=== PATIENT | female | born 1945 | race Caucasian/White ===

== ENCOUNTER → 2017-12-20 14:00 | Outpatient (CLI) | payer OTHER, SELFPAY | PROVIDERS: Family Provider Family Medicine; PCP Family Medicine | DX: Z23 Encounter for immunization (principal) | CPT/HCPCS: 90471; 90662 ==

== ENCOUNTER → 2018-03-13 09:04 | Outpatient (CLI) | payer OTHER, SELFPAY ==
[2018-03-13 09:39] LABS: Hematocrit 39.4 % (36-46); Hemoglobin 13.6 g/dL (12.0-16.0); Mean Corpuscular HGB Conc 34.6 % (30-36); Mean Corpuscular Hemoglobin 34.7 PG (26-34); Mean Corpuscular Volume 100.4 fL (80-100); Platelet Count 202 X10^3/uL (150-400); Red Blood Cell Count 3.93 X10^6/uL (4.0-5.2); Red Cell Distribution Width 13.6 % (11.6-14.8); White Blood Cell Count 5.6 X10^3/uL (4.5-11.0)
[2018-03-13 09:54] LABS: Alanine Aminotransferase 42 IU/L (9-52); Albumin 4.4 g/dL (3.5-5.0); Albumin Globulin Ratio 1.3 (1.0-2.8); Alkaline Phosphatase 125 U/L (38-126); Aspartate Aminotransferase 42 IU/L (14-36); BUN Creatinine Ratio 17.1 (6-22); Bilirubin Total 0.6 mg/dL (0.2-1.3); Blood Urea Nitrogen 12 mg/dL (7-17); Calcium 9.2 mg/dL (8.4-10.2); Carbon Dioxide 26 mmol/L (22-32); Chloride 101 mmol/L (98-107); Cholesterol 172 mg/dL (140-199); Estimated Glomerular Filt Rate > 60.0 mL/min (>60); Globulin 3.3 g/dL (1.7-4.1); Glucose 91 mg/dL (80-110); HDL Cholesterol 59 mg/dL (40-60); HEMOLYSIS < 15 (0-50); LDL Cholesterol Calculated 99 mg/dL (<100); Potassium 3.8 mmol/L (3.4-5.1); Sodium 138 mmol/L (137-145); Total Protein 7.7 g/dL (6.3-8.2); Triglycerides 68 mg/dL (35-150)
[2018-03-13 11:08] LABS: TSH w/ Reflex to FT4 1.19 uIU/mL (0.47-4.68)
== END ==
PROVIDERS: PCP Family Medicine; Visit Provider Family Medicine
DX: E78.5 Hyperlipidemia, unspecified (principal); I10 Essential (primary) hypertension
CPT/HCPCS: 36415; 80053; 80061; 84443; 85027

== ENCOUNTER → 2018-08-08 14:28 | Outpatient (CLI) | payer OTHER, SELFPAY ==
--- NOTE | 2018-08-08 14:30 | DI.RAD.S_ITS ---
PROCEDURE: XR HIP W PEL IF DONE RT 2V INDICATIONS: Pain in lower back/top of pelvis right side TECHNIQUE: AP pelvis with lateral view(s) of the right hip(s). COMPARISON: None. FINDINGS: Bones: No fractures or dislocations. Pelvic ring appears intact. No suspicious bony lesions. Soft tissues: The visualized bowel gas pattern is normal. No suspicious soft tissue calcifications. IMPRESSION: No visualized acute fracture or dislocation. However, if clinical concern and/or pain persist, short interval imaging followup in 7-10 days is recommended, as occult injury cannot be definitively excluded. Dictated by: Courtney Parr M.D. on 08/08/2018 at 16:26 Approved by: Courtney Parr M.D. on 08/08/2018 at 16:27
== END ==
PROVIDERS: PCP Family Medicine; Visit Provider Nurse Practitioner
DX: M54.5 Low back pain (principal); R10.2 Pelvic and perineal pain
CPT/HCPCS: 73502

== ENCOUNTER → 2019-01-16 13:41 | Outpatient (CLI) | payer OTHER, SELFPAY | PROVIDERS: PCP Family Medicine | DX: Z23 Encounter for immunization (principal) | CPT/HCPCS: 90471; 90662 ==

== ENCOUNTER → 2019-04-09 09:15 | Outpatient (CLI) | payer OTHER, SELFPAY ==
--- NOTE | 2019-04-09 09:16 | DI.MRI.S_ITS ---
PROCEDURE: MR HEAD/BRAIN WO/W CON INDICATIONS: LEFT ARM AND LEFT LEG WEAKNESS TECHNIQUE: Noncontrast axial T1 spin echo, axial T2 fast spin echo, sagittal and axial FLAIR, coronal T2 fast spin echo, axial gradient echo, axial diffusion and ADC through the brain. After the administration of contrast, axial and coronal T1 spin echo with fat saturation through the brain. COMPARISON: None. FINDINGS: Image quality: Excellent. CSF spaces: Basal cisterns are patent. No extra-axial fluid collections. Ventricles are normal in size and shape. Brain: No midline shift. No intracranial bleeds or masses. No abnormal intracranial enhancement. There is cerebral volume loss for age. There is periventricular white matter chronic small vessel ischemic change. The brainstem appears normal. Diffusion-weighted images demonstrate no acute ischemic insults. No chronic ischemic insults. Normal intravascular flow voids are present. Skull and face: Calvarial marrow is normal in signal. Orbits appear normal. Sinuses: Sinuses and mastoids appear clear. IMPRESSION: 1. No acute intracranial process. 2. Moderate atrophy and chronic microvascular ischemic changes. Dictated by: Courtney Parr M.D. on 04/09/2019 at 11:03 Approved by: Courtney Parr M.D. on 04/09/2019 at 11:08
== END ==
PROVIDERS: PCP Family Medicine; Visit Provider Family Medicine
DX: R29.898 Other symptoms and signs involving the musculoskeletal system (principal)
CPT/HCPCS: 70553

== ENCOUNTER → 2019-04-23 14:58 | Outpatient (CLI) | payer OTHER, SELFPAY ==
--- NOTE | 2019-04-23 14:59 | DI.RAD.S_ITS ---
PROCEDURE: XR CERVICAL SPINE 2V OR 3V INDICATIONS: pain TECHNIQUE: 3 view(s) of the cervical spine were acquired. COMPARISON: None. FINDINGS: Bones: No fractures or dislocations to the T1 level. Note is made of moderately severe degenerative disc disease at C5-6 and C6-7. Facet osteoarthritis at these levels result in likelihood of both spinal and foraminal stenosis. The lateral masses of C1 appear intact on the odontoid view. No suspicious bony lesions. Soft tissues: No prevertebral soft tissue swelling. IMPRESSION: Moderately severe degenerative disc disease C5-6 and C6-7 with likelihood of symmetric significant spinal and foraminal stenosis as a result. No trauma found. Dictated by: Gino Rodríguez M.D. on 04/23/2019 at 15:49 Approved by: Gino Rodríguez M.D. on 04/23/2019 at 16:04
== END ==
PROVIDERS: PCP Family Medicine; Visit Provider Family Medicine
DX: M25.512 Pain in left shoulder (principal); M50.322 Other cervical disc degeneration at C5-C6 level
CPT/HCPCS: 72040

== ENCOUNTER → 2019-06-18 16:11 | Outpatient (CLI) | payer OTHER, SELFPAY ==
--- NOTE | 2019-06-18 16:12 | DI.MRI.S_ITS ---
PROCEDURE: MR CERVICAL SPINE WO CON INDICATIONS: Left sided cervical radiculopathy TECHNIQUE: Noncontrast sagittal T1 spin echo and T2 fast spin echo, sagittal STIR, foraminal oblique sagittal T2 fast spin echo, and axial gradient echo or T2 fast spin echo through the cervical spine. COMPARISON: None. FINDINGS: Image quality: Excellent. Alignment and Curvature: Straightening of the normal lordotic curvature. Grade 1 anterolisthesis of C3 on C4 and trace anterolisthesis of C4 on C5. Grade 1 retrolisthesis of C6 on C7 Bone Marrow: No fracture Multilevel degenerative endplate sclerosis and spurring. Diffuse facet arthropathy. Spinal Cord: Cord T2 hyperintensity present at the C5 level although technically age-indeterminate, and nonspecific No cerebellar tonsillar herniation. Paraspinous Soft Tissues: No paravertebral masses. Prevertebral soft tissues are normal in thickness. C2-C3: No canal stenosis. Mild bilateral foraminal narrowing. C3-C4: Minimal canal narrowing. Severe right and moderate left foraminal stenoses with nerve root compression. C4-C5: Moderate canal stenosis. Severe bilateral foraminal stenoses with nerve root compression. C5-C6: Mild to moderate canal stenosis. Severe right foraminal narrowing without nerve root compression. Moderate left foraminal stenosis with nerve root compression C6-C7: Mild canal narrowing. Moderate bilateral foraminal stenoses although right slightly greater than left. There is bilateral nerve root compression. C7-T1: No canal narrowing. No foraminal stenosis.. IMPRESSION: Numerous bilateral foraminal stenoses, most pronounced at C3-C4, C4-C5, C5-C6. Multilevel spondylolisthesis as above. Moderate canal stenoses at C4-C5 and C5-C6. Cord signal change at the C5 level although technically age indeterminate. This could be chronic degenerative myelomalacia although nonspecific Dictated by: Ricco Ferrari M.D. on 06/18/2019 at 17:58 Approved by: Ricco Ferrari M.D. on 06/18/2019 at 18:05
== END ==
PROVIDERS: PCP Family Medicine; Referring Provider Registered Nurse; Visit Provider Registered Nurse
DX: M48.02 Spinal stenosis, cervical region (principal); M43.12 Spondylolisthesis, cervical region; M47.22 Other spondylosis with radiculopathy, cervical region
CPT/HCPCS: 72141

== ENCOUNTER → 2019-06-21 08:22 | Outpatient (CLI) | payer OTHER, SELFPAY ==
[2019-06-21 09:23] LABS: Add Manual Diff / Slide Review NO; Basophils Absolute Auto 0 /uL (0-100); Basophils Percent Auto 0.9 % (0-2); Eosinophils Absolute Auto 100 /uL (0-450); Eosinophils Percent Auto 2.2 % (2-4); Hematocrit 42.2 % (36-46); Hemoglobin 14.6 g/dL (12.0-16.0); Lymphocytes Absolute Auto 1000 /uL (1100-4500); Lymphocytes Percent Auto 20.2 % (25-40); Mean Corpuscular HGB Conc 34.5 % (30-36); Mean Corpuscular Hemoglobin 35.1 PG (26-34); Mean Corpuscular Volume 101.6 fL (80-100); Monocytes Absolute Auto 400 /uL (0-900); Monocytes Percent Auto 7.9 % (3-14); Neutrophils Absolute Auto 3500 /uL (1500-7000); Neutrophils Percent Auto 68.8 % (50-75); Platelet Count 211 X10^3/uL (150-400); Red Blood Cell Count 4.15 X10^6/uL (4.0-5.2); Red Cell Distribution Width 14.1 % (11.6-14.8); White Blood Cell Count 5.1 X10^3/uL (4.5-11.0)
[2019-06-21 10:04] LABS: Alanine Aminotransferase 26 IU/L (<35); Albumin 4.3 g/dL (3.5-5.0); Albumin Globulin Ratio 1.3 (1.0-2.8); Alkaline Phosphatase 85 U/L (38-126); Aspartate Aminotransferase 36 IU/L (14-36); BUN Creatinine Ratio 19.4 (6-22); Bilirubin Total 0.6 mg/dL (0.2-1.3); Blood Urea Nitrogen 13 mg/dL (7-17); Calcium 9.7 mg/dL (8.4-10.2); Carbon Dioxide 28 mmol/L (22-32); Chloride 102 mmol/L (98-107); Cholesterol 229 mg/dL (140-199); Estimated Glomerular Filt Rate > 60.0 mL/min (>60); Globulin 3.4 g/dL (1.7-4.1); Glucose 99 mg/dL (80-110); HDL Cholesterol 55 mg/dL (40-60); HEMOLYSIS < 15 (0-50); LDL Cholesterol Calculated 160 mg/dL (<100); Potassium 3.8 mmol/L (3.4-5.1); Sodium 136 mmol/L (137-145); Total Protein 7.7 g/dL (6.3-8.2); Triglycerides 70 mg/dL (35-150)
[2019-06-21 11:05] LABS: TSH w/ Reflex to FT4 0.88 uIU/mL (0.47-4.68)
== END ==
PROVIDERS: PCP Family Medicine; Referring Provider Family Medicine; Visit Provider Family Medicine
DX: E78.5 Hyperlipidemia, unspecified (principal); I10 Essential (primary) hypertension
CPT/HCPCS: 36415; 80053; 80061; 84443; 85025

== ENCOUNTER → 2020-03-25 11:39 | Outpatient (CLI) | payer MEDICARE, OTHER, SELFPAY ==
--- NOTE | 2020-03-25 11:42 | DI.RAD.S_ITS ---
PROCEDURE: XR FOOT LT MIN 3V INDICATIONS: INFECTED ABRASION OF FIFTH TOE ON LEFT FOOT TECHNIQUE: 2 views of the foot were acquired. COMPARISON: None. FINDINGS: Bones: There is a moderate hallux valgus deformity. Mild degenerative changes are seen in the interphalangeal joints. Soft tissues: No tibiotalar joint effusion. Achilles tendon appears normal. IMPRESSION: 1. No acute abnormality of the left foot. 2. Hallux valgus deformity of the left great toe. Dictated by: Frank Hart M.D. on 03/25/2020 at 12:35 Approved by: Frank Hart M.D. on 03/25/2020 at 12:37
== END ==
PROVIDERS: PCP Family Medicine; Referring Provider Family Medicine; Visit Provider Family Medicine
DX: S90.415A Abrasion, left lesser toe(s), initial encounter (principal); L08.9 Local infection of the skin and subcutaneous tissue, unspecified; M20.12 Hallux valgus (acquired), left foot; X58.XXXA Exposure to other specified factors, initial encounter
CPT/HCPCS: 73630

== ENCOUNTER → 2020-04-07 13:10 | Outpatient (CLI) | payer MEDICARE, OTHER, SELFPAY | PROVIDERS: Family Provider Family Medicine; PCP Family Medicine; Referring Provider Family Medicine; Visit Provider Family Medicine | DX: S91.105A Unspecified open wound of left lesser toe(s) without damage to nail, initial encounter (principal); R23.0 Cyanosis; I73.00 Raynaud's syndrome without gangrene; L08.9 Local infection of the skin and subcutaneous tissue, unspecified | CPT/HCPCS: 11042; 87070; 87075; 87077; 87147; 87186; 87205; 99203; 99213 ==

== ENCOUNTER → 2020-04-10 14:25 | Outpatient (CLI) | payer MEDICARE, OTHER, SELFPAY ==
[2020-04-10 14:53] LABS: Add Manual Diff / Slide Review NO; Basophils Absolute Auto 100 /uL (0-100); Basophils Percent Auto 0.6 % (0-2); Eosinophils Absolute Auto 100 /uL (0-450); Eosinophils Percent Auto 0.9 % (2-4); Hemoglobin 13.4 g/dL (12.0-16.0); Lymphocytes Absolute Auto 1400 /uL (1100-4500); Lymphocytes Percent Auto 13.8 % (25-40); Mean Corpuscular HGB Conc 33.6 % (30-36); Mean Corpuscular Hemoglobin 34.1 PG (26-34); Mean Corpuscular Volume 101.3 fL (80-100); Monocytes Absolute Auto 600 /uL (0-900); Monocytes Percent Auto 5.6 % (3-14); Neutrophils Absolute Auto 8000 /uL (1500-7000); Neutrophils Percent Auto 79.1 % (50-75); Platelet Count 236 X10^3/uL (150-400); Red Blood Cell Count 3.94 X10^6/uL (4.0-5.2); Red Cell Distribution Width 13.7 % (11.6-14.8); White Blood Cell Count 10.1 X10^3/uL (4.5-11.0)
[2020-04-10 15:13] LABS: Erythrocyte Sedimentation Rate 12 MM/HR (0-20)
[2020-04-10 16:05] LABS: Alanine Aminotransferase 43 IU/L (<35); Albumin 4.5 g/dL (3.5-5.0); Albumin Globulin Ratio 1.3 (1.0-2.8); Alkaline Phosphatase 231 U/L (38-126); Aspartate Aminotransferase 44 IU/L (14-36); BUN Creatinine Ratio 35.1 (6-22); Bilirubin Total 0.5 mg/dL (0.2-1.3); Blood Urea Nitrogen 27 mg/dL (7-17); C-Reactive Protein Quant < 0.5 mg/dL (<1.0); Carbon Dioxide 25 mmol/L (22-32); Chloride 101 mmol/L (98-107); Estimated Glomerular Filt Rate > 60.0 mL/min (>60); Globulin 3.5 g/dL (1.7-4.1); Glucose 110 mg/dL (80-110); HEMOLYSIS < 15 (0-50); Potassium 3.8 mmol/L (3.4-5.1); Sodium 134 mmol/L (137-145)
[2020-04-10 16:08] LABS: Rheumatoid Factor < 8.6 IU/mL (<12.0)
[2020-04-12 13:50] LABS: ANA Screen, IFA Negative (.)
== END ==
PROVIDERS: Family Provider Family Medicine; PCP Family Medicine; Referring Provider Family Medicine; Visit Provider Family Medicine
DX: S91.105A Unspecified open wound of left lesser toe(s) without damage to nail, initial encounter (principal); R23.0 Cyanosis; L08.9 Local infection of the skin and subcutaneous tissue, unspecified; I73.89 Other specified peripheral vascular diseases
CPT/HCPCS: 36415; 80053; 85025; 85651; 86038; 86140; 86430

== ENCOUNTER → 2020-04-14 14:54 | Outpatient (CLI) | payer MEDICARE, OTHER, SELFPAY | PROVIDERS: Family Provider Family Medicine; PCP Family Medicine; Referring Provider Family Medicine; Visit Provider Family Medicine | DX: S91.105A Unspecified open wound of left lesser toe(s) without damage to nail, initial encounter (principal); R23.0 Cyanosis | CPT/HCPCS: 97597; 99213 ==

== ENCOUNTER → 2020-05-06 12:03 | Outpatient (CLI) | payer MEDICARE, OTHER, SELFPAY ==
[2020-05-06] MEDS: COVID-19 VACC #1, MRNA(MOD) 100 MCG/0.5 ML VIAL IM (12:09)
== END ==
PROVIDERS: Family Provider Family Medicine; PCP Family Medicine; Visit Provider Internal Medicine
DX: Z23 Encounter for immunization (principal)
CPT/HCPCS: 0011A; 91301

== ENCOUNTER → 2020-06-03 15:00 | Outpatient (CLI) | payer MEDICARE, OTHER, SELFPAY ==
[2020-06-03] MEDS: COVID-19 VACC #2, MRNA(MOD) 100 MCG/0.5 ML VIAL IM (15:11)
== END ==
PROVIDERS: Family Provider Family Medicine; PCP Family Medicine; Visit Provider Internal Medicine
DX: Z23 Encounter for immunization (principal)
CPT/HCPCS: 0012A; 91301

== ENCOUNTER → 2021-03-11 14:25 | Outpatient (CLI) | payer MEDICARE, OTHER, SELFPAY | PROVIDERS: Family Provider Family Medicine; PCP Family Medicine; Referring Provider Nurse Practitioner Family; Visit Provider Family Medicine | DX: S91.105A Unspecified open wound of left lesser toe(s) without damage to nail, initial encounter (principal); I73.89 Other specified peripheral vascular diseases | CPT/HCPCS: 11042; 93922; 99213; 99214 ==

== ENCOUNTER → 2021-03-18 15:29 | Outpatient (CLI) | payer MEDICARE, OTHER, SELFPAY | PROVIDERS: Family Provider Family Medicine; PCP Family Medicine; Referring Provider Family Medicine; Visit Provider Family Medicine | DX: S91.105A Unspecified open wound of left lesser toe(s) without damage to nail, initial encounter (principal); R23.0 Cyanosis; I73.89 Other specified peripheral vascular diseases | CPT/HCPCS: 97597 ==

== ENCOUNTER → 2021-04-01 14:48 | Outpatient (CLI) | payer MEDICARE, OTHER, SELFPAY | PROVIDERS: Family Provider Family Medicine; PCP Family Medicine; Referring Provider Family Medicine; Visit Provider Family Medicine | DX: R23.0 Cyanosis (principal); Z72.0 Tobacco use; Z87.2 Personal history of diseases of the skin and subcutaneous tissue | CPT/HCPCS: 99212; 99213 ==

== ENCOUNTER → 2021-06-08 08:37 | Outpatient (CLI) | payer MEDICARE, OTHER, SELFPAY ==
--- NOTE | 2021-06-08 08:40 | DI.RAD.S_ITS ---
PROCEDURE: XR SHOULDER LT MIN 2V INDICATIONS: LEFT SHOULDER PAIN TECHNIQUE: 3 views of the shoulder were acquired. COMPARISON: None. FINDINGS: Bones: No fractures or dislocations. No suspicious bony lesions. Visualized ribs appear intact. Mild acromioclavicular joint and glenohumeral joint osteoarthritis. Soft tissues: No suspicious soft tissue calcifications. IMPRESSION: Mild glenohumeral and acromioclavicular osteoarthritis. Dictated by: Sheri Baer MD, PhD on 06/08/2021 at 15:08 Approved by: Sheri Baer MD, PhD on 06/08/2021 at 15:09
== END ==
PROVIDERS: Family Provider Family Medicine; PCP Family Medicine; Referring Provider Physical Medicine & Rehabilitation; Visit Provider Physical Medicine & Rehabilitation
DX: M19.012 Primary osteoarthritis, left shoulder (principal); S46.912A Strain of unspecified muscle, fascia and tendon at shoulder and upper arm level, left arm, initial encounter; M48.02 Spinal stenosis, cervical region; M75.42 Impingement syndrome of left shoulder; M25.512 Pain in left shoulder; F17.200 Nicotine dependence, unspecified, uncomplicated; X58.XXXA Exposure to other specified factors, initial encounter
CPT/HCPCS: 73030; 99214

== ENCOUNTER → 2021-07-18 08:52 | Outpatient (CLI) | payer MEDICARE, OTHER, SELFPAY ==
[2021-07-18 10:03] LABS: Add Manual Diff / Slide Review NO; Basophils Absolute Auto 0 /uL (0-100); Basophils Percent Auto 0.6 % (0-2); Eosinophils Absolute Auto 400 /uL (0-450); Eosinophils Percent Auto 5.1 % (2-4); Hematocrit 40.7 % (36-46); Lymphocytes Absolute Auto 1700 /uL (1100-4500); Lymphocytes Percent Auto 23.5 % (25-40); Mean Corpuscular HGB Conc 34.3 % (30-36); Mean Corpuscular Volume 99.2 fL (80-100); Monocytes Absolute Auto 600 /uL (0-900); Monocytes Percent Auto 8.7 % (3-14); Neutrophils Absolute Auto 4500 /uL (1500-7000); Neutrophils Percent Auto 62.1 % (50-75); Platelet Count 205 X10^3/uL (150-400); Red Blood Cell Count 4.11 X10^6/uL (4.0-5.2); Red Cell Distribution Width 14.1 % (11.6-14.8); White Blood Cell Count 7.2 X10^3/uL (4.5-11.0)
[2021-07-18 10:54] LABS: Alanine Aminotransferase 51 IU/L (<35); Albumin 4.6 g/dL (3.5-5.0); Albumin Globulin Ratio 1.2 (1.0-2.8); Alkaline Phosphatase 224 U/L (38-126); Aspartate Aminotransferase 60 IU/L (14-36); BUN Creatinine Ratio 27.9 (6-22); Bilirubin Total 0.6 mg/dL (0.2-1.3); Blood Urea Nitrogen 19 mg/dL (7-17); Calcium 9.7 mg/dL (8.4-10.2); Carbon Dioxide 25 mmol/L (22-32); Chloride 105 mmol/L (98-107); Cholesterol 235 mg/dL (140-199); Estimated Glomerular Filt Rate > 60.0 mL/min (>60); Globulin 3.8 g/dL (1.7-4.1); Glucose 96 mg/dL (80-110); HDL Cholesterol 56 mg/dL (40-60); HEMOLYSIS < 15 (0-50); LDL Cholesterol Calculated 151 mg/dL (<100); Potassium 3.9 mmol/L (3.4-5.1); Sodium 140 mmol/L (137-145); Total Protein 8.4 g/dL (6.3-8.2); Triglycerides 138 mg/dL (35-150)
[2021-07-18 11:43] LABS: Vitamin B12 851 pg/mL (239-931)
== END ==
PROVIDERS: Family Provider Family Medicine; PCP Family Medicine; Referring Provider Physician Assistant; Visit Provider Physician Assistant
DX: E78.5 Hyperlipidemia, unspecified (principal); F17.200 Nicotine dependence, unspecified, uncomplicated; I10 Essential (primary) hypertension; R26.89 Other abnormalities of gait and mobility
CPT/HCPCS: 36415; 80053; 80061; 82607; 84443; 85025

== ENCOUNTER 2021-08-10 09:26 | Emergency (ER) | payer MEDICARE, OTHER, SELFPAY ==
[2021-08-10] VITALS (27 sets, daily range): BP systolic 146–199; BP diastolic 72–110; PULSE 42–59; RESP 14–30; TEMP 36.4; O2SAT 96–99
--- NOTE | 2021-08-10 09:48 | DI.RAD.S_ITS ---
PROCEDURE: XR CHEST 1V INDICATIONS: weakness TECHNIQUE: One view of the chest was acquired. COMPARISON: None. FINDINGS: Surgical changes and devices: None. Lungs and pleura: Left apical nodular density measuring 43 mm. No evidence of pneumonia or edema. No pleural effusions or pneumothorax. Mediastinum: Mediastinal contours appear normal. Heart size is normal. Bones and chest wall: No suspicious bony lesions. Overlying soft tissues appear unremarkable. IMPRESSION: 1. Left apical density; initial further assessment with contrast enhanced chest CT is recommended. 2. No acute process. Dictated by: Marleen Vogel M.D. on 08/10/2021 at 10:12 Approved by: Marleen Vogel M.D. on 08/10/2021 at 10:13
--- NOTE | 2021-08-10 09:59 | DI.CT.S_ITS ---
PROCEDURE: CT LUMBAR SPINE WO CON INDICATIONS: fall pain TECHNIQUE: Noncontrast 3 mm thick sections acquired from the T12 level to the sacrum. Sagittal and coronal reformats were constructed. For radiation dose reduction, the following was used: automated exposure control. COMPARISON: None. FINDINGS: Image quality: Excellent. Bones: There is an inferior endplate fracture causing approximate 30% compression deformity at L2. Fracture lucency is identified within the mid/posterior 3rd of the vertebral body. No visualized paravertebral hematoma. Severe disc space narrowing with reactive endplate changes are present L4-5 and L5-S1. Multilevel disc bulges are present. Minimal spinal stenosis is present at L2-3, L3-4. Soft tissues: No retroperitoneal masses or hematomas. Visualized aorta is normal in caliber. IMPRESSION: Acute/subacute fracture at L2 as above. Dictated by: Courtney Parr M.D. on 08/10/2021 at 9:15 Approved by: Courtney Parr M.D. on 08/10/2021 at 9:48
--- NOTE | 2021-08-10 09:59 | DI.CT.S_ITS ---
PROCEDURE: CT HEAD/BRAIN WO CON INDICATIONS: bilateral lower leg weakness TECHNIQUE: Noncontrast 4.5 mm thick angled axial sections acquired from the foramen magnum to the vertex, with coronal and sagittal reformats. For radiation dose reduction, the following was used: automated exposure control, adjustment of mA and/or kV according to patient size. COMPARISON: [facility], MR, MR HEAD/BRAIN WO/W CON, 04/09/2019, 9:38. FINDINGS: Image quality: Excellent. CSF spaces: Basal cisterns are patent. No extra-axial fluid collections. There is mild hydrocephalus. Brain: No intracranial bleeds . There is a calcified mass within the left cerebellar hemisphere measuring roughly 35 mm diameter, with surrounding ill-defined low density, spanning roughly 52 mm diameter, which causes compression of the 4th ventricle. Peripherally calcified cystic mass within the right parietal lobe measuring roughly 35 mm is present with surrounding low density, consistent with vasogenic edema. Right occipital lobe mass with central necrosis and peripheral calcifications spanning roughly 34 mm is present, with surrounding low density. There is cerebral volume loss for age, with resultant ventricular and sulcal prominence. There are periventricular and deep white matter chronic small vessel ischemic changes. The cerebellar mass appears to cause mass effect upon the cleo. There is intracranial internal carotid artery atherosclerosis. Skull and face: Calvarium and visualized facial bones appear intact, without suspicious lesions. Sinuses: Visualized sinuses and mastoids are clear. IMPRESSION: 1. Cerebral and cerebellar masses as described above, consistent with metastatic disease. 2. The cerebellar mass demonstrates mass effect upon the cleo and 4th ventricle with associated hydrocephalus. Dictated by: Marleen Vogel M.D. on 08/10/2021 at 10:16 Approved by: Marleen Vogel M.D. on 08/10/2021 at 10:19
[2021-08-10 10:07] LABS: Add Manual Diff / Slide Review NO; Basophils Absolute Auto 0 /uL (0-100); Basophils Percent Auto 0.4 % (0-2); Eosinophils Absolute Auto 100 /uL (0-450); Eosinophils Percent Auto 1.7 % (2-4); Hematocrit 38.4 % (36-46); Hemoglobin 13.4 g/dL (12.0-16.0); Lymphocytes Absolute Auto 1000 /uL (1100-4500); Lymphocytes Percent Auto 12.5 % (25-40); Mean Corpuscular HGB Conc 34.9 % (30-36); Mean Corpuscular Hemoglobin 34.3 PG (26-34); Mean Corpuscular Volume 98.4 fL (80-100); Monocytes Absolute Auto 500 /uL (0-900); Neutrophils Absolute Auto 6100 /uL (1500-7000); Neutrophils Percent Auto 79.4 % (50-75); Platelet Count 187 X10^3/uL (150-400); Red Cell Distribution Width 14.1 % (11.6-14.8); White Blood Cell Count 7.7 X10^3/uL (4.5-11.0)
[2021-08-10 10:13] LABS: INR 1.1 (0.9-1.3); Prothrombin Time 12.5 SECONDS (10.1-12.7)
[2021-08-10 10:16] LABS: PTT Partial Thromboplastin Tim 31 SECONDS (26.4-36.2)
[2021-08-10 10:22] LABS: Alanine Aminotransferase 32 IU/L (<35); Albumin 4.1 g/dL (3.5-5.0); Albumin Globulin Ratio 1.2 (1.0-2.8); Alkaline Phosphatase 173 U/L (38-126); Aspartate Aminotransferase 41 IU/L (14-36); BUN Creatinine Ratio 39.6 (6-22); Bilirubin Total 0.7 mg/dL (0.2-1.3); Blood Urea Nitrogen 21 mg/dL (7-17); Carbon Dioxide 22 mmol/L (22-32); Chloride 109 mmol/L (98-107); Creatine Kinase 46 U/L (30-135); Estimated Glomerular Filt Rate > 60 mL/min (>60); Globulin 3.4 g/dL (1.7-4.1); Glucose 104 mg/dL (80-110); HEMOLYSIS 25 (0-50); Lipase 57 U/L (23-300); Potassium 3.5 mmol/L (3.4-5.1); Sodium 138 mmol/L (137-145); Total Protein 7.5 g/dL (6.3-8.2)
[2021-08-10 10:32] LABS: Troponin I < 0.012 ng/mL (0.01-0.034)
--- NOTE | 2021-08-10 10:51 | ED.WEAKNESS ---
HPI - Weakness General Chief complaint: Weakness Stated complaint: Lower back pain Time Seen by Provider: 08/10/21 09:47 Mode of arrival: EMS History of Present Illness HPI Narrative: Patient is a 75-year-old female who has history of myelomalacia of the cervical spine, hypertension, hyperlipidemia presenting today with bilateral lower extremity weakness. This has been ongoing for about 1-2 weeks. She feels weakness in her lower legs. She saw her primary care provider on 08/05/2021 for something similar. She feels like her legs give out.. Yesterday she fell straight on her back and now having back pain. No changes in bowel or bladder habits. She is also noted to be slightly bradycardic with heart rate in the 40s but a sinus rhythm not on any AV keo blockers. She denies any chest pain shortness of breath chest pain or palpitations. According to daughter patient actually felt well until about 2 weeks ago. 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 Daughter reports she has urinary incontinence as well. She is also having increasing falls. Related Data Home Medications Medication Instructions Recorded Confirmed MULTIVITAMIN 1 cap PO Q DAY #0 09/20/11 08/05/21 aspirin 81 mg tablet,delayed 81 mg PO DAILY 02/14/18 08/05/21 release (Adult Low Dose Aspirin) acetaminophen 500 mg tablet 500 mg PO Q6H PRN 07/20/21 08/05/21 (Tylenol Extra Strength) cholecalciferol (vitamin D3) 50 50 mcg PO DAILY 07/20/21 08/05/21 mcg (2,000 unit) capsule tumeric 100 mg-angelina 150 mg-olive cap PO 07/20/21 08/05/21 50 mg-oreg 150 mg-caprylate capsule Previous Rx's Medication Instructions Recorded simvastatin 20 mg tablet 20 mg PO HS #90 tab 11/03/20 triamcinolone acetonide 0.1 % 1 applic TOPICAL BID #15 gram 04/15/21 topical cream Allergies Allergy/AdvReac Type Severity Reaction Status Date / Time No Known Drug Allergies Allergy Verified 08/05/21 14:47 Review of Systems Review of Systems Narrative: GENERAL: Denies chills, fatigue, malaise, fever, sweats, travel HEENT: Denies sinus pain, ear pain, sore throat, difficulty swallowing, neck pain RESPIRATORY: Denies dyspnea, cough, wheezing, hemoptysis, sputum. CARDIOVASCULAR: Denies chest pain, palpitations, orthopnea, edema GASTROINTESTINAL: Denies nausea, vomiting, abdominal pain, diarrhea, constipation, melena. : Denies dysuria, frequency, incontinence, hematuria, urinary retention, flank pain. MUSCULOSKELETAL: see HPI SKIN: No rash, no erythema, no pruritus NEUROLOGIC: See HPI PSYCHIATRIC: No concerning psychosocial issues. 12 point review of systems is negative except for those stated above and HPI Patient History Medical History Arthritis of carpometacarpal (CMC) joint of left thumb Cervical stenosis of spinal canal Facet arthropathy, cervical Foraminal stenosis of cervical region Impingement syndrome of left shoulder Myelomalacia of cervical cord Surgical History History of tonsillectomy Status post tubal ligation Social History marital status: Smoking Status: Current every day smoker alcohol intake: current substance use type: does not use Smoking Status: Current every day smoker Exam Initial Vital Signs Initial Vital Signs: Vital Signs Temperature 97.6 F 08/10/21 09:35 Pulse Rate 44 L 08/10/21 09:35 Respiratory Rate 16 08/10/21 09:35 Blood Pressure 183/72 H 08/10/21 09:35 Pulse Oximetry 99 08/10/21 09:35 GENERAL: Alert week 75-year-old female no acute distress HEENT: Head atraumatic,EOMI, pupils reactive, face symmetric, moist mucous membranes CARDIOVASCULAR: Regular rate and rhythm without murmurs, rubs or gallops. RESPIRATORY: Breath sounds equal bilaterally, no wheezes rales or rhonchi. ABDOMEN: Soft, nontender. Normoactive bowel sounds all 4 quadrants. No guarding or rebound. BACK: Tender at L1-L2 area no step-off EXTREMITIES: Normal range of motion, no clubbing or edema. Neurovascularly intact NEUROLOGICAL: Alert and oriented x4. Significant bilateral lower extremity weakness unable to lift left leg is against gravity right leg very brief but quickly falls. 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 Course Orders Ordered: ED Orders 08/10/21 11:30 MR lumbar spine wo/w con Stat 08/10/21 15:58 Urinalysis and Microscopic Stat 08/10/21 16:52 CT chest abd pel w con Stat 08/10/21 17:15 COVID19 -Nasal RAPID/Pre-Proc Stat Discontinued Medications Lorazepam (Lorazepam 2 Mg/Ml Inj) 0.5 mg IV NOW ONE Stop: 08/10/21 12:24 Last Admin: 08/10/21 14:31 Dose: 0.5 mg Documented by: TADEO Lorazepam (Lorazepam 2 Mg/Ml Inj) 0.5 mg IV NOW ONE Stop: 08/10/21 16:54 Last Admin: 08/10/21 17:01 Dose: 0.5 mg Documented by: TADEO Nicotine (Nicotine 21 Mg Patch) 21 mg TOP NOW ONE Stop: 08/10/21 18:37 Last Admin: 08/10/21 18:44 Dose: 21 mg Documented by: TADEO Ondansetron HCl (Ondansetron 4 Mg/2 Ml Inj) 4 mg IV NOW ONE Stop: 08/10/21 13:49 Last Admin: 08/10/21 13:54 Dose: 4 mg Documented by: TADEO Vital Signs Vital signs: Vital Signs - 8 hr 08/10/21 12:00 08/10/21 12:01 08/10/21 12:30 Pulse Rate 43 L 43 L 44 L Respiratory Rate 14 16 15 Blood Pressure 153/74 H 167/78 H Pulse Oximetry 96 97 96 08/10/21 13:00 08/10/21 13:01 08/10/21 13:30 Pulse Rate 44 L 43 L 44 L Respiratory Rate 15 16 20 Blood Pressure 146/110 H Pulse Oximetry 97 97 97 08/10/21 13:58 08/10/21 14:00 08/10/21 14:30 Pulse Rate 43 L 44 L 53 L Respiratory Rate 17 23 30 H Blood Pressure 163/80 H Pulse Oximetry 97 98 97 08/10/21 15:29 08/10/21 15:30 08/10/21 15:31 Pulse Rate 56 L 59 L 55 L Respiratory Rate 17 18 Blood Pressure 173/84 H Pulse Oximetry 96 97 08/10/21 16:00 08/10/21 16:30 08/10/21 17:10 Pulse Rate 56 L 45 L 45 L Respiratory Rate 19 25 H 30 H Blood Pressure Pulse Oximetry 98 08/10/21 17:30 08/10/21 18:40 Pulse Rate 48 L Respiratory Rate 22 Blood Pressure 199/93 H Pulse Oximetry MDM - Weakness Lab Data Result diagrams: 08/10/21 09:55 08/10/21 09:55 Labs: Lab Results 08/10/21 08/10/21 08/10/21 Range/Units 09:55 09:55 09:55 WBC 7.7 (4.5-11.0) X10^3/uL RBC 3.90 L (4.0-5.2) X10^6/uL Hgb 13.4 (12.0-16.0) g/dL Hct 38.4 (36-46) % MCV 98.4 (80-100) fL MCH 34.3 H (26-34) PG MCHC 34.9 (30-36) % RDW 14.1 (11.6-14.8) % Plt Count 187 (150-400) X10^3/uL Neut % (Auto) 79.4 H (50-75) % Lymph % (Auto) 12.5 L (25-40) % Giles % (Auto) 6.0 (3-14) % Eos % (Auto) 1.7 L (2-4) % Baso % (Auto) 0.4 (0-2) % Neut # (Auto) 6100 (3183-9458) /uL Lymph # (Auto) 1000 L (8333-8553) /uL Giles # (Auto) 500 (0-900) /uL Eos # (Auto) 100 (0-450) /uL Baso # (Auto) 0 (0-100) /uL PT 12.5 (10.1-12.7) SECONDS INR 1.1 (0.9-1.3) APTT 31 (26.4-36.2) SECONDS Sodium 138 (137-145) mmol/L Potassium 3.5 (3.4-5.1) mmol/L Chloride 109 H (98-107) mmol/L Carbon Dioxide 22 (22-32) mmol/L BUN 21 H (7-17) mg/dL Creatinine 0.53 (0.52-1.04) mg/dL Estimated GFR > 60 (>60) mL/min BUN/Creatinine Ratio 39.6 H (6-22) Glucose 104 (80-110) mg/dL Calcium 9.0 (8.4-10.2) mg/dL Magnesium (1.6-2.3) mg/dL Total Bilirubin 0.7 (0.2-1.3) mg/dL AST 41 H (14-36) IU/L ALT 32 (<35) IU/L Alkaline Phosphatase 173 H (38-126) U/L Total Creatine Kinase 46 (30-135) U/L CK-MB (CK-2) TNP CK-MB (CK-2) Rel Index TNP Troponin I < 0.012 (0.01-0.034) ng/mL Total Protein 7.5 (6.3-8.2) g/dL Albumin 4.1 (3.5-5.0) g/dL Globulin 3.4 (1.7-4.1) g/dL Albumin/Globulin Ratio 1.2 (1.0-2.8) Lipase 57 (23-300) U/L TSH (0.47-4.68) uIU/mL Urine Color Urine Appearance Urine pH (4.5-8.0) Ur Specific [place] (1.000-1.035) Urine Protein (Negative) Urine Glucose (UA) (Negative) g/dL Urine Ketones (NEGATIVE) Urine Occult Blood (Negative) Urine Nitrate (Negative) Urine Bilirubin (NEGATIVE) Urine Urobilinogen (0.2) E.U./dL Ur Leukocyte Esterase (NEGATIVE) Urine RBC (0-5/HPF) Urine WBC (0-5/HPF) Calcium Oxalate Crystal Amorphous Sediment Urine Bacteria (None) Urine Mucus (Negative) Ur Culture Indicated? SARS-CoV-2 (PCR) (Negative) 08/10/21 08/10/21 08/10/21 Range/Units 09:55 09:55 15:58 WBC (4.5-11.0) X10^3/uL RBC (4.0-5.2) X10^6/uL Hgb (12.0-16.0) g/dL Hct (36-46) % MCV (80-100) fL MCH (26-34) PG MCHC (30-36) % RDW (11.6-14.8) % Plt Count (150-400) X10^3/uL Neut % (Auto) (50-75) % Lymph % (Auto) (25-40) % Giles % (Auto) (3-14) % Eos % (Auto) (2-4) % Baso % (Auto) (0-2) % Neut # (Auto) (4707-9212) /uL Lymph # (Auto) (3070-6577) /uL Giles # (Auto) (0-900) /uL Eos # (Auto) (0-450) /uL Baso # (Auto) (0-100) /uL PT (10.1-12.7) SECONDS INR (0.9-1.3) APTT (26.4-36.2) SECONDS Sodium (137-145) mmol/L Potassium (3.4-5.1) mmol/L Chloride (98-107) mmol/L Carbon Dioxide (22-32) mmol/L BUN (7-17) mg/dL Creatinine (0.52-1.04) mg/dL Estimated GFR (>60) mL/min BUN/Creatinine Ratio (6-22) Glucose (80-110) mg/dL Calcium (8.4-10.2) mg/dL Magnesium 2.0 (1.6-2.3) mg/dL Total Bilirubin (0.2-1.3) mg/dL AST (14-36) IU/L ALT (<35) IU/L Alkaline Phosphatase (38-126) U/L Total Creatine Kinase (30-135) U/L CK-MB (CK-2) CK-MB (CK-2) Rel Index Troponin I (0.01-0.034) ng/mL Total Protein (6.3-8.2) g/dL Albumin (3.5-5.0) g/dL Globulin (1.7-4.1) g/dL Albumin/Globulin Ratio (1.0-2.8) Lipase (23-300) U/L TSH 1.23 (0.47-4.68) uIU/mL Urine Color Yellow Urine Appearance Clear Urine pH 6.5 (4.5-8.0) Ur Specific [place] 1.020 (1.000-1.035) Urine Protein Trace H (Negative) Urine Glucose (UA) Negative (Negative) g/dL Urine Ketones 1+ H (NEGATIVE) Urine Occult Blood Trace-lysed (Negative) Urine Nitrate Negative (Negative) Urine Bilirubin Negative (NEGATIVE) Urine Urobilinogen 0.2 (0.2) E.U./dL Ur Leukocyte Esterase Negative (NEGATIVE) Urine RBC 0-1/hpf (0-5/HPF) Urine WBC None seen (0-5/HPF) Calcium Oxalate Crystal Occasional H Amorphous Sediment 1+ Urine Bacteria None seen (None) Urine Mucus 1+ H (Negative) Ur Culture Indicated? Cult not indicated SARS-CoV-2 (PCR) (Negative) 08/10/21 Range/Units 17:15 WBC (4.5-11.0) X10^3/uL RBC (4.0-5.2) X10^6/uL Hgb (12.0-16.0) g/dL Hct (36-46) % MCV (80-100) fL MCH (26-34) PG MCHC (30-36) % RDW (11.6-14.8) % Plt Count (150-400) X10^3/uL Neut % (Auto) (50-75) % Lymph % (Auto) (25-40) % Giles % (Auto) (3-14) % Eos % (Auto) (2-4) % Baso % (Auto) (0-2) % Neut # (Auto) (1234-1334) /uL Lymph # (Auto) (6727-8379) /uL Giles # (Auto) (0-900) /uL Eos # (Auto) (0-450) /uL Baso # (Auto) (0-100) /uL PT (10.1-12.7) SECONDS INR (0.9-1.3) APTT (26.4-36.2) SECONDS Sodium (137-145) mmol/L Potassium (3.4-5.1) mmol/L Chloride (98-107) mmol/L Carbon Dioxide (22-32) mmol/L BUN (7-17) mg/dL Creatinine (0.52-1.04) mg/dL Estimated GFR (>60) mL/min BUN/Creatinine Ratio (6-22) Glucose (80-110) mg/dL Calcium (8.4-10.2) mg/dL Magnesium (1.6-2.3) mg/dL Total Bilirubin (0.2-1.3) mg/dL AST (14-36) IU/L ALT (<35) IU/L Alkaline Phosphatase (38-126) U/L Total Creatine Kinase (30-135) U/L CK-MB (CK-2) CK-MB (CK-2) Rel Index Troponin I (0.01-0.034) ng/mL Total Protein (6.3-8.2) g/dL Albumin (3.5-5.0) g/dL Globulin (1.7-4.1) g/dL Albumin/Globulin Ratio (1.0-2.8) Lipase (23-300) U/L TSH (0.47-4.68) uIU/mL Urine Color Urine Appearance Urine pH (4.5-8.0) Ur Specific [place] (1.000-1.035) Urine Protein (Negative) Urine Glucose (UA) (Negative) g/dL Urine Ketones (NEGATIVE) Urine Occult Blood (Negative) Urine Nitrate (Negative) Urine Bilirubin (NEGATIVE) Urine Urobilinogen (0.2) E.U./dL Ur Leukocyte Esterase (NEGATIVE) Urine RBC (0-5/HPF) Urine WBC (0-5/HPF) Calcium Oxalate Crystal Amorphous Sediment Urine Bacteria (None) Urine Mucus (Negative) Ur Culture Indicated? SARS-CoV-2 (PCR) Negative (Negative) Imaging Data CT scan - head: Radiologist Impression: CT Scan Report Signed Patient: Areli Ac MR#: [id number] : 1945 Acct:[id number] Age/Sex: 75 / F Date of Service: 08/10/21 Loc: ED Accession Number: [id number] ?? Procedure: CT head/brain wo con Ordering Provider: Loretta Saini D.O. PROCEDURE:? CT HEAD/BRAIN WO CON ? INDICATIONS:? bilateral lower leg weakness ? TECHNIQUE:? Noncontrast 4.5 mm thick angled axial sections acquired from the foramen magnum to the vertex, with coronal and sagittal reformats.? For radiation dose reduction, the following was used:? automated exposure control, adjustment of mA and/or kV according to patient size.? ? COMPARISON:[facility], , MR HEAD/BRAIN WO/W CON, 04/09/2019, 9:38. ? FINDINGS:? Image quality:? Excellent.? ? CSF spaces:? Basal cisterns are patent.? No extra-axial fluid collections.? There is mild hydrocephalus. ? Brain:? No intracranial bleeds .? There is a calcified mass within the left cerebellar hemisphere measuring roughly 35 mm diameter, with surrounding ill-defined low density, spanning roughly 52 mm diameter, which causes compression of the 4th ventricle.? Peripherally calcified cystic mass within the right parietal lobe measuring roughly 35 mm is present with surrounding low density, consistent with vasogenic edema.? Right occipital lobe mass with central necrosis and peripheral calcifications spanning roughly 34 mm is present, with surrounding low density.? There is cerebral volume loss for age, with resultant ventricular and sulcal prominence.? There are periventricular and deep white matter chronic small vessel ischemic changes.? The cerebellar mass appears to cause mass effect upon the cleo.? There is intracranial internal carotid artery atherosclerosis.? ? Skull and face:? Calvarium and visualized facial bones appear intact, without suspicious lesions.? ? Sinuses:? Visualized sinuses and mastoids are clear.? ? IMPRESSION:? 1. Cerebral and cerebellar masses as described above, consistent with metastatic disease. 2. The cerebellar mass demonstrates mass effect upon the cleo and 4th ventricle with associated hydrocephalus.? ? ? Dictated by: Marleen Vogel M.D. on 08/10/2021 at 10:16 ?? Chest x-ray: Radiologist Impression: ent: Areli Ac MR#: [id number] : 1945 Acct:[id number] Age/Sex: 75 / F Date of Service: 08/10/21 Loc: ED Accession Number: [id number] ?? Procedure: XR chest 1V Ordering Provider: Loretta Saini D.O. PROCEDURE:? XR CHEST 1V ? INDICATIONS:? weakness ? TECHNIQUE:? One view of the chest was acquired.? ? COMPARISON:? None. ? FINDINGS:? ? Surgical changes and devices:? None.? ? Lungs and pleura:? Left apical nodular density measuring 43 mm.? No evidence of pneumonia or edema.? No pleural effusions or pneumothorax.? ? Mediastinum:? Mediastinal contours appear normal.? Heart size is normal.? ? Bones and chest wall:? No suspicious bony lesions.? Overlying soft tissues appear unremarkable.? ? IMPRESSION:? 1. Left apical density; initial further assessment with contrast enhanced chest CT is recommended.? 2. No acute process.? ? Dictated by: Marleen Vogel M.D. on 08/10/2021 at 10:12 ? ? CT Lumbar: Radiologist Impression: nt: Areli Ac MR#: [id number] : 1945 Acct:[id number] Age/Sex: 75 / F Date of Service: 08/10/21 Loc: ED Accession Number: [id number] ?? Procedure: CT lumbar spine wo con Ordering Provider: Loretta Saini D.O. PROCEDURE:? CT LUMBAR SPINE WO CON ? INDICATIONS:? fall pain ? TECHNIQUE:? Noncontrast 3 mm thick sections acquired from the T12 level to the sacrum.? Sagittal and coronal reformats were constructed.? For radiation dose reduction, the following was used:? automated exposure control.? ? COMPARISON:? None. ? FINDINGS:? Image quality:? Excellent.? ? Bones:? There is an inferior endplate fracture causing approximate 30% compression deformity at L2.? Fracture lucency is identified within the mid/posterior 3rd of the vertebral body.? No visualized paravertebral hematoma.? Severe disc space narrowing with reactive endplate changes are present L4-5 and L5-S1.? Multilevel disc bulges are present.? Minimal spinal stenosis is present at L2-3, L3-4. ? Soft tissues:? No retroperitoneal masses or hematomas.? Visualized aorta is normal in caliber.? ? ? IMPRESSION:? Acute/subacute fracture at L2 as above.? ? ? Dictated by: Courtney Parr M.D. on 08/10/2021 at 9:15 ? ? MR lumbar: Radiologist Impression: Areli Ac MR#: [id number] : 1945 Acct:[id number] Age/Sex: 75 / F Date of Service: 08/10/21 Loc: ED Accession Number: [id number] ?? Procedure: MR lumbar spine wo/w con Ordering Provider: Loretta Saini D.O. PROCEDURE:? MR LUMBAR SPINE WO/W CON ? INDICATIONS:? leg weakness with loss of urine L>R and falls ? TECHNIQUE:? Noncontrast sagittal T1 spin echo and T2 fast spin echo, sagittal STIR, axial T1 and T2 fast spin echo through the lumbar spine.? In cases with scoliosis, additional coronal T2 fast spin echo may be performed.? After the administration of contrast, sagittal and axial T1 spin echo with fat saturation through the lumbar spine.? ? COMPARISON:? [facility], CT, CT HEAD/BRAIN WO CON, 08/10/2021, 10:03.? [facility], CT, CT LUMBAR SPINE WO CON, 08/10/2021, 10:03. ? FINDINGS:? Image quality:? Patient motion artifact.? ? Alignment and curvature:? There is normal bony alignment.? ? Marrow:? There is an acute inferior endplate compression fracture of L2 vertebral body.? It results in approximately 30 % midportion vertebral body height loss.? Possible very subtle infiltrative lesion involving the trabecular portion of the L2 vertebra.? This area has increased STIR signal and enhancement with gadolinium.? No other compression fractures.? No other suspected lesions.? No suspicious marrow enhancement.? ? Spinal cord:? Conus medullaris terminates at the T12-L1 level.? Visualized spinal cord demonstrates normal signal, without suspicious enhancement.? ? Paraspinous soft tissues:? No paravertebral masses or abnormal enhancement.? ? T12-L1:? No canal stenosis or foraminal stenosis. ? L1-L2:? No canal stenosis or foraminal stenosis. ? L2-L3:? Minimal disc bulge.? Facet hypertrophy. No canal stenosis or foraminal stenosis. ? L3-L4:? Moderate disc bulge.? Facet hypertrophy.? Mild canal stenosis.? Mild bilateral foraminal stenosis. ? L4-L5:? Moderate disc height loss.? Posterior disc bulge.? Facet hypertrophy.? No canal stenosis.? Mild right foraminal stenosis. ? L5-S1:? Disc bulge.? Facet hypertrophy.? Mild bilateral foraminal stenosis.? No canal stenosis. ? ? IMPRESSION:? ? 1. There is an acute inferior endplate compression fracture of L2, with approximately 30% midportion vertebral body height loss.? This may potentially represent a pathologic compression.? There is a suggestion of a possible subtle infiltrative lesion involving L2. ? 2. Lumbar degenerative change. ? Dictated by: Dre Bird M.D. on 08/10/2021 at 15:30 ? ? Approved by: Dre Bird M.D. on 08/10/2021 at 15:41 ? CT scan - abdomen/pelvis: Radiologist Impression: ?Areli Ac MR#: [id number] : 1945 Acct:[id number] Age/Sex: 75 / F Date of Service: 08/10/21 Loc: ED Accession Number: [id number] ?? Procedure: CT chest abd pel w con Ordering Provider: Loretta Saini D.O. PROCEDURE:? CT CHEST ABD PEL W CON ? INDICATIONS:? probably lung cancer ? TECHNIQUE:? After the administration of oral and intravenous contrast, axial sections acquired from the supraclavicular neck to the pubic symphysis.? Coronal and sagittal reformats were performed.? For radiation dose reduction, the following was used:? automated exposure control, adjustment of mA and/or kV according to patient size.? ? COMPARISON:? [facility], CT, CT LUMBAR SPINE WO CON, 08/10/2021, 10:03.? [facility], MR, MR LUMBAR SPINE WO/W CON, 08/10/2021, 14:45. ? FINDINGS:? Image quality:? Excellent.? ? CHEST: Lower Neck: No enlarged lymph nodes.? Thyroid: Within normal limits. Axillae: No enlarged lymph nodes. Chest Wall:? Unremarkable.? ? Lungs and Airways:? Large multilobulated and spiculated left apical lung mass measuring 2.9 x 1.9 cm.? Mass abuts the pleura and ribs.? No additional pulmonary masses. Pleura: No pneumothorax or pleural effusions.? ? Heart: Heart size is normal.? No pericardial effusion.? At least moderate coronary artery calcifications. Thoracic Vessels: The aorta and pulmonary arteries demonstrate normal size.? Mediastinum and [place]:? Clearly metastatic mediastinal adenopathy, including a prevascular lymph node on image 20/2 measuring 2.4 x 1.2 cm.? An AP window lymph node on image 25/2 measures 2.2 x 1.5 cm.? Another AP window lymph node on the same slice measures 2.3 x 1.5 cm.? There is malignant left hilar adenopathy, surrounding the left upper lobe pulmonary artery.? A left hilar lymph node on image 28/2 measures 1.5 x 1.8 cm.? A 2nd mediastinal lymph node on the same image measures 1.2 x 1.1 cm.? There is also left infrahilar adenopathy.? There is a lymph node on image 31/2 measuring 1.8 x 1.5 cm.? Esophagus: No wall thickening. No hiatal hernia. ? ? ABDOMEN: Liver:? Unremarkable.? ? Gallbladder:? Unremarkable.? ? Biliary ducts:? Unremarkable.? ? Pancreas:? Unremarkable.? ? Spleen:? Unremarkable.? ? Adrenal Glands:? Unremarkable.? ? Kidneys and Ureters:? Unremarkable.? ? ? Stomach and Bowel:? Very large rectal fecal impaction. Peritoneum:? No abnormal intraperitoneal fluid.? No free air.? ? Ventral Wall: ? No hernia.? Abdominal Nodes:? No retroperitoneal or mesenteric adenopathy by size criteria.? Vessels:? Aorta and inferior vena cava are normal in size.? ? PELVIS: Pelvic Organs:? Uterus is surgically absent.? ? Bladder:? Unremarkable.? ? Pelvic Nodes: No enlarged lymph nodes.? Miscellaneous: No inguinal hernias are seen. ? ? ? Bones:? There is a mild inferior endplate compression of L2.? As described in the previous lumbar spine MRI report, it may potentially represent a pathologic lesion. ? IMPRESSION:? ? 1.? Large multilobulated and spiculated left apical lung mass is consistent with a bronchogenic carcinoma. ? 2.? Clearly metastatic adenopathy to the left hilum and left mediastinum. ? 3.? Coronary artery disease. ? 4. Inferior endplate compression fracture of L2.? Cannot exclude a pathologic compression. ? 5. Very large rectal fecal impaction.? ? ? Dictated by: Dre Bird M.D. on 08/10/2021 at 17:19 ? ? ECG Data Interpretation: Sinus bradycardia rate 45 OK interval 144 QRS [address] changes similar to previous EKG MDM Narrative Medical decision making narrative: Patient has obvious lower extremity weakness left greater than right urinary continence. CT does show L2 compression fracture concern for possible cauda equina. MRI of the lumbar spine was ordered which confirms acute L2 compression fracture but also concern for possible pathologic compression fracture and infiltrative lesion. CT head also shows calcified masses with 4th ventricle compression. This may be causing her increased falls and weakness. CT chest confirms new lung mass. Patient is neurologically intact, with lower extremity weakness, new diagnosis of probable metastatic lung cancer. 174-pacheco Cummings, at [facility], updated patient's symptoms test results template accepts patient to the emergency department. Discharge Plan Departure Patient Disposition: [facility] Clinical Impression: Lung cancer, Compression fracture of L2, Brain mass Prescriptions: No Action MULTIVITAMIN 1 cap PO Q DAY Qty: 0 0RF simvastatin 20 mg tablet 20 mg PO HS Qty: 90 3RF triamcinolone acetonide 0.1 % cream 1 applic Topical BID Qty: 15 1RF aspirin [Adult Low Dose Aspirin] 81 mg tablet,delayed release (DR/EC) 81 mg PO DAILY 0RF acetaminophen [Tylenol Extra Strength] 500 mg tablet 500 mg PO Q6H PRN0RF cholecalciferol (vitamin D3) 50 mcg (2,000 unit) capsule 50 mcg PO DAILY 0RF qsrtccj-vkfe-zockz-oreg-capryl 100 mg-150 mg- 50 mg-150 mg capsule PO 0RF Referrals: Alberto Hawley MD [Primary Care Provider] -
--- NOTE | 2021-08-10 11:30 | DI.MRI.S_ITS ---
PROCEDURE: MR LUMBAR SPINE WO/W CON INDICATIONS: leg weakness with loss of urine L>R and falls TECHNIQUE: Noncontrast sagittal T1 spin echo and T2 fast spin echo, sagittal STIR, axial T1 and T2 fast spin echo through the lumbar spine. In cases with scoliosis, additional coronal T2 fast spin echo may be performed. After the administration of contrast, sagittal and axial T1 spin echo with fat saturation through the lumbar spine. COMPARISON: [facility], CT, CT HEAD/BRAIN WO CON, 08/10/2021, 10:03. [facility], CT, CT LUMBAR SPINE WO CON, 08/10/2021, 10:03. FINDINGS: Image quality: Patient motion artifact. Alignment and curvature: There is normal bony alignment. Marrow: There is an acute inferior endplate compression fracture of L2 vertebral body. It results in approximately 30 % midportion vertebral body height loss. Possible very subtle infiltrative lesion involving the trabecular portion of the L2 vertebra. This area has increased STIR signal and enhancement with gadolinium. No other compression fractures. No other suspected lesions. No suspicious marrow enhancement. Spinal cord: Conus medullaris terminates at the T12-L1 level. Visualized spinal cord demonstrates normal signal, without suspicious enhancement. Paraspinous soft tissues: No paravertebral masses or abnormal enhancement. T12-L1: No canal stenosis or foraminal stenosis. L1-L2: No canal stenosis or foraminal stenosis. L2-L3: Minimal disc bulge. Facet hypertrophy. No canal stenosis or foraminal stenosis. L3-L4: Moderate disc bulge. Facet hypertrophy. Mild canal stenosis. Mild bilateral foraminal stenosis. L4-L5: Moderate disc height loss. Posterior disc bulge. Facet hypertrophy. No canal stenosis. Mild right foraminal stenosis. L5-S1: Disc bulge. Facet hypertrophy. Mild bilateral foraminal stenosis. No canal stenosis. IMPRESSION: 1. There is an acute inferior endplate compression fracture of L2, with approximately 30% midportion vertebral body height loss. This may potentially represent a pathologic compression. There is a suggestion of a possible subtle infiltrative lesion involving L2. 2. Lumbar degenerative change. Dictated by: Dre Bird M.D. on 08/10/2021 at 15:30 Approved by: Dre Bird M.D. on 08/10/2021 at 15:41
[2021-08-10 11:53] LABS: Thyroid Stimulating Hormone 1.23 uIU/mL (0.47-4.68)
[2021-08-10] MEDS: ONDANSETRON 4 MG/2 ML INJ IV (13:54)
[2021-08-10] MEDS: LORazepam 2 MG/ML INJ 0.5 MG IV ×2 (14:31→17:01)
--- NOTE | 2021-08-10 14:48 | PC.NURSE ---
Pt taken to MRI
--- NOTE | 2021-08-10 16:52 | DI.CT.S_ITS ---
PROCEDURE: CT CHEST ABD PEL W CON INDICATIONS: probably lung cancer TECHNIQUE: After the administration of oral and intravenous contrast, axial sections acquired from the supraclavicular neck to the pubic symphysis. Coronal and sagittal reformats were performed. For radiation dose reduction, the following was used: automated exposure control, adjustment of mA and/or kV according to patient size. COMPARISON: [facility], CT, CT LUMBAR SPINE WO CON, 08/10/2021, 10:03. [facility], MR, MR LUMBAR SPINE WO/W CON, 08/10/2021, 14:45. FINDINGS: Image quality: Excellent. CHEST: Lower Neck: No enlarged lymph nodes. Thyroid: Within normal limits. Axillae: No enlarged lymph nodes. Chest Wall: Unremarkable. Lungs and Airways: Large multilobulated and spiculated left apical lung mass measuring 2.9 x 1.9 cm. Mass abuts the pleura and ribs. No additional pulmonary masses. Pleura: No pneumothorax or pleural effusions. Heart: Heart size is normal. No pericardial effusion. At least moderate coronary artery calcifications. Thoracic Vessels: The aorta and pulmonary arteries demonstrate normal size. Mediastinum and [place]: Clearly metastatic mediastinal adenopathy, including a prevascular lymph node on image 20/2 measuring 2.4 x 1.2 cm. An AP window lymph node on image 25/2 measures 2.2 x 1.5 cm. Another AP window lymph node on the same slice measures 2.3 x 1.5 cm. There is malignant left hilar adenopathy, surrounding the left upper lobe pulmonary artery. A left hilar lymph node on image 28/2 measures 1.5 x 1.8 cm. A 2nd mediastinal lymph node on the same image measures 1.2 x 1.1 cm. There is also left infrahilar adenopathy. There is a lymph node on image 31/2 measuring 1.8 x 1.5 cm. Esophagus: No wall thickening. No hiatal hernia. ABDOMEN: Liver: Unremarkable. Gallbladder: Unremarkable. Biliary ducts: Unremarkable. Pancreas: Unremarkable. Spleen: Unremarkable. Adrenal Glands: Unremarkable. Kidneys and Ureters: Unremarkable. Stomach and Bowel: Very large rectal fecal impaction. Peritoneum: No abnormal intraperitoneal fluid. No free air. Ventral Wall: No hernia. Abdominal Nodes: No retroperitoneal or mesenteric adenopathy by size criteria. Vessels: Aorta and inferior vena cava are normal in size. PELVIS: Pelvic Organs: Uterus is surgically absent. Bladder: Unremarkable. Pelvic Nodes: No enlarged lymph nodes. Miscellaneous: No inguinal hernias are seen. Bones: There is a mild inferior endplate compression of L2. As described in the previous lumbar spine MRI report, it may potentially represent a pathologic lesion. IMPRESSION: 1. Large multilobulated and spiculated left apical lung mass is consistent with a bronchogenic carcinoma. 2. Clearly metastatic adenopathy to the left hilum and left mediastinum. 3. Coronary artery disease. 4. Inferior endplate compression fracture of L2. Cannot exclude a pathologic compression. 5. Very large rectal fecal impaction. Dictated by: Dre Bird M.D. on 08/10/2021 at 17:19 Approved by: Dre Bird M.D. on 08/10/2021 at 17:28
[2021-08-10 17:03] LABS: Appearance Urine UA CLEAR; Bilirubin Urine UA NEGATIVE (NEGATIVE); Color Urine UA YELLOW; Glucose Urine UA NEGATIVE (Negative); Ketones Urine UA 1+ (NEGATIVE); Leukocyte Esterase Urine UA NEGATIVE (NEGATIVE); Nitrite Urine UA NEGATIVE (Negative); Occult Blood Urine UA TRACE-LYSED (Negative); Protein Urine UA TRACE (Negative); Urobilinogen Urine UA 0.2 E.U./dL (0.2)
[2021-08-10 17:05] LABS: pH Urine UA 6.5 (4.5-8.0)
[2021-08-10 17:12] LABS: RBC Urine 0-1/HPF (0-5/HPF); WBC Urine None Seen (0-5/HPF)
[2021-08-10 17:13] LABS: Amorphous Sediment Urine 1+; Bacteria Urine None Seen; Calcium Oxalate Crystals Urine Occasional; Culture Indicated Urine Cult Not Indicated; Mucus Urine 1+ (Negative)
[2021-08-10 18:10] LABS: COVID19 -Nasal RAPID Negative (Negative)
[2021-08-10] MEDS: NICOTINE 21 MG PATCH TOP (18:44)
== END 2021-08-10 18:45 | disposition short-term general hospital (02) ==
PROVIDERS: Emergency Provider Emergency Medicine; Family Provider Family Medicine; PCP Family Medicine
DX: C34.90 Malignant neoplasm of unspecified part of unspecified bronchus or lung (principal); S32.020A Wedge compression fracture of second lumbar vertebra, initial encounter for closed fracture; G93.9 Disorder of brain, unspecified; F17.200 Nicotine dependence, unspecified, uncomplicated; W19.XXXA Unspecified fall, initial encounter; Z20.822 Contact with and (suspected) exposure to COVID-19; R53.1 Weakness; R00.1 Bradycardia, unspecified
CPT/HCPCS: 36415; 51798; 70450; 71045; 71260; 72131; 72158; 74177; 80053; 81001; 82550; 83690; 83735; 84443; 84484; 85025; 85610; 85730; 87635; 93005; 93010; 96374; 96375; 96376; 99285; C9803; A9579; J2060; J2405; Q9967

== ENCOUNTER → 2021-08-25 11:00 | Outpatient (CLI) | payer MEDICARE, OTHER, SELFPAY ==
[2021-08-25 13:42] LABS: BUN Creatinine Ratio 31.8 (6-22); Blood Urea Nitrogen 21 mg/dL (7-17); Calcium 9.3 mg/dL (8.4-10.2); Carbon Dioxide 27 mmol/L (22-32); Chloride 100 mmol/L (98-107); Estimated Glomerular Filt Rate > 60 mL/min (>60); Glucose 91 mg/dL (80-110); HEMOLYSIS < 15 (0-50); Sodium 134 mmol/L (137-145)
== END ==
PROVIDERS: Family Provider Family Medicine; PCP Family Medicine; Referring Provider Physician Assistant; Visit Provider Physician Assistant
DX: I10 Essential (primary) hypertension (principal); Z98.890 Other specified postprocedural states
CPT/HCPCS: 36415; 80048

== ENCOUNTER → 2021-09-21 14:20 | Outpatient (CLI) | payer MEDICARE, OTHER, SELFPAY ==
[2021-09-21 16:12] LABS: COVID19 -Nasal RAPID Negative (Negative)
== END ==
PROVIDERS: Family Provider Family Medicine; PCP Family Medicine; Visit Provider Surgery
DX: Z20.822 Contact with and (suspected) exposure to COVID-19 (principal); Z01.812 Encounter for preprocedural laboratory examination
CPT/HCPCS: 87635; C9803

== ENCOUNTER 2021-09-22 06:24 | Day surgery (SDC) | payer MEDICARE, OTHER, SELFPAY ==
[2021-09-22] VITALS (7 sets, daily range): BP systolic 107–158; BP diastolic 57–89; PULSE 50–61; RESP 11–16; TEMP 36.5–37.2; O2SAT 96–100; BMI 22.3
--- NOTE | 2021-09-22 | DI.RAD.S_ITS ---
PROCEDURE: XR CHEST 1V INDICATIONS: PORT PLACEMENT INTER OP TECHNIQUE: One view of the chest was acquired. COMPARISON: [facility], CR, XR CHEST 1V, 08/10/2021, 9:53. FINDINGS: Surgical changes and devices: Port-A-Cath 2 C-arm operative views demonstrate right chest right IJ Port-A-Cath placement with its tip projecting to the SVC right atrial junction. IMPRESSION: Operative fluoroscopy utilized for Port-A-Cath placement. Dictated by: Dre Bird M.D. on 09/22/2021 at 9:46 Approved by: Dre Bird M.D. on 09/22/2021 at 9:50
[2021-09-22] MEDS: LACTATED RINGERS 1,000 ML 42 ML IV (07:21)
--- NOTE | 2021-09-22 07:34 | SUR.OPER ---
Supine on padded OR bed, head on pillow, arms padded and tucked at sides, legs uncrossed, safety belt at thigh, tape over blanket over lower legs .
--- NOTE | 2021-09-22 07:43 | P.HP_ITS ---
History of Present Illness History of Present Illness Date Patient Seen: 09/22/21 Time Patient Seen: 07:44 Chief complaint: SD Narrative: Areli is a 75-year-old woman who has recently been diagnosed with metastatic lung cancer. She had a recent craniectomy at [facility] for a metastatic brain lesion. She is scheduled to have chemotherapy and a Port-A-Cath has been requested. Patient History Medical History Arthritis of carpometacarpal (CMC) joint of left thumb Cervical stenosis of spinal canal Facet arthropathy, cervical Foraminal stenosis of cervical region Impingement syndrome of left shoulder Myelomalacia of cervical cord Surgical History History of tonsillectomy Status post tubal ligation Family & Social History Social History: household members family Tobacco & Substance use: Smoking Status Former smoker alcohol intake current alcohol intake frequency holiday/special occasion Substance Use Type does not use Meds Home Medications and Allergies Home Medications Medication Instructions Recorded Confirmed Type MULTIVITAMIN 1 cap PO Q DAY ##0 09/20/11 08/25/21 History simvastatin 20 mg tablet 20 mg PO HS #90 tabs 11/03/20 09/22/21 Rx triamcinolone acetonide 0.1 % 1 applic topical BID #15 grams 04/15/21 09/22/21 Rx topical cream acetaminophen 325 mg tablet 650 mg PO Q6H PRN 08/25/21 08/25/21 History (Tylenol) cholecalciferol (vitamin D3) 25 25 mcg PO DAILY 08/25/21 08/25/21 History mcg (1,000 unit) capsule dexamethasone 2 mg tablet 2 mg PO BID 08/25/21 09/22/21 History lisinopril 20 mg tablet 20 mg PO DAILY 08/25/21 09/22/21 History nicotine 14 mg/24 hr daily 1 patch transdermal DAILY 08/25/21 09/22/21 History transdermal patch omeprazole 20 mg capsule,delayed 20 mg PO DAILY 08/25/21 09/22/21 History release ondansetron 4 mg disintegrating 4 mg PO Q8H 08/25/21 09/22/21 History tablet oxycodone 5 mg tablet 5 mg PO Q4H PRN Pain (Scale Score 08/25/21 09/22/21 History 1-3) polyethylene glycol 3350 17 gram 17 g PO DAILY 08/25/21 09/22/21 History oral powder packet (Miralax) sennosides 8.6 mg tablet (Natural 17.2 mg PO BEDTIME PRN constipation 08/25/21 09/22/21 History Senna Laxative) vitamin B complex (B 1 tab PO DAILY 08/25/21 09/22/21 History Complex-Vitamin B12) Allergies Allergy/AdvReac Type Severity Reaction Status Date / Time No Known Drug Allergies Allergy Verified 09/22/21 07:05 Exam Vital Signs (past 8 hours): - 09/22/21 07:23 Temperature 99.0 F Pulse Rate 52 L Respiratory Rate 16 Blood Pressure 158/89 H Pulse Oximetry 100 Oxygen Delivery Method Room Air Oxygen Delivery Method Room Air Const General: comfortable HENMT Head: normal to inspection Neck Neck: normal visual inspection Chest Chest: normal inspection of the chest Assessment & Plan Assessment and plan (1) Non-small cell lung cancer: Qualifiers: Laterality: unspecified laterality Qualified Code(s): C34.90 - Malignant neoplasm of unspecified part of unspecified bronchus or lung Status: Acute Plan Areli is here for a Port-A-Cath. We discussed the risks, benefits and rationale of the Port-A-Cath and she would like to proceed. COVID-19 COVID-19 status: Negative Result date/Date tested (Pos, Neg/Pending): 09/21/21 Time Spent With Patient Critical Care time: I spent a total of [] minutes of critical care time on this patient's care today; this time is exclusive of procedural time.
[2021-09-22] MEDS: CEFAZOLIN 2 GM/20 ML SYRINGE IV (08:05)
[2021-09-22] MEDS: SODIUM CHLORIDE 0.9% FLUSH 10 ML IV (08:40)
--- NOTE | 2021-09-22 08:42 | DI.RAD.S_ITS ---
PROCEDURE: XR CHEST 1V INDICATIONS: PORT PLACEMENT TECHNIQUE: One view of the chest was acquired. COMPARISON: [facility], CT, CT CHEST ABD PEL W CON, 08/10/2021, 16:59. [facility], CR, XR CHEST 1V, 09/22/2021, 8:41. FINDINGS: Surgical changes and devices: Right chest wall central venous port catheter terminates in the inferior aspect of the SVC near the cavoatrial junction. Lungs and pleura: Increased interstitial prominence. No focal airspace opacity. No pleural effusions or pneumothorax. Mediastinum: Mediastinal contours appear normal. Heart size is normal. Bones and chest wall: No suspicious bony lesions. Overlying soft tissues appear unremarkable. IMPRESSION: Right chest wall central venous port catheter is in appropriate position. Dictated by: Alberto Kohli M.D. on 09/22/2021 at 10:52 Approved by: Alberto Kohli M.D. on 09/22/2021 at 10:53
[2021-09-22] MEDS: LIDOCAINE 1% W/EPI 20 ML INJ (08:44)
[2021-09-22] MEDS: BUPIVACAINE 0.5% (PF) VIAL 8 ML INJ (08:46)
--- NOTE | 2021-09-22 09:06 | PM.OP.1 ---
Operative Date/Time/Diagnoses Date of procedure: 09/22/21 Time of procedure: 09:06 Pre-op diagnosis: Metastatic lung cancer Post-op diagnosis: same Procedure & Clinicians Procedure: Port-A-Cath Same procedure as scheduled: Yes Surgeon: Durga Moreno Anesthesia Type: General Operative Notes Procedure in detail: The patient was brought to the operating room, placed on the table in the supine position with the arms tucked. Ancef was administered. Anesthesia was induced via LMA. A time-out was performed. The right chest and neck were prepped and draped in the usual fashion. An ultrasound was used to identify the right internal jugular vein. The vein was noted to be patent. An image was saved and printed and placed in the chart. The right internal jugular vein was accessed via the Seldinger technique under ultrasound guidance. The guidewire was inserted into the superior vena cava. C-arm was used to confirm proper position of the guidewire in the superior vena cava and no ectopy was noted. The needle was removed and the wire was clamped to the drape. Next, a port pocket was created just inferior to the medial clavicle using a 15 blade scalpel. Dissection was carried down to the pectoral fascia. A subcutaneous pocket was created using a combination of cautery and blunt dissection. Next, the port which was primed with injectable saline, was secured to the fascia with 3-0 PDS sutures left untied and clamped. The neck incision was extended with an 11 blade scalpel to approximately 5 mm. The dilator and peel-away sheath were inserted over the wire without resistance. The catheter was passed from the neck incision to the chest incision in the subcutaneous tissue using the tunnelling device. The wire and dilator were then removed and the catheter inserted through the peel-away sheath to deliver it into the superior vena cava. The depth of the device was checked using the C-arm and the tip of the device was noted to be in the distal superior vena cava. The exterior portion of the catheter was then trimmed and attached to the port using the strain relief collar. A final image showed good position of the catheter with no kinks. The port was then tucked into the subcutaneous pocket and the sutures were tied to secure the device. The port was then accessed using the King needle and it was noted that the device artur and flushed easily without resistance. Approximately 4 mL of heparinized saline were injected into the device. The skin incisions were closed with 3-0 Vicryl and 4-0 Monocryl. Steri-Strips were applied patient was awakened and brought to recovery room EBL: 5 mL Ultrasound: The right internal jugular vein was patent. The right carotid artery was visualized adjacent to the vein. Venipuncture was visualized in real-time using the ultrasound. Fluoroscopy: The device was positioned appropriately with the distal end of the catheter near the atriocaval junction. There were no kinks in the catheter. Post-operative Condition: stable Disposition: PACU
== END 2021-09-22 09:40 | disposition home or self-care (01) ==
PROVIDERS: Family Provider Family Medicine; PCP Family Medicine; Referring Provider Surgery; Visit Provider Surgery
PROC: (CPT 36561; principal; 2021-09-22 07:45)
DX: C34.90 Malignant neoplasm of unspecified part of unspecified bronchus or lung (principal); C79.89 Secondary malignant neoplasm of other specified sites
CPT/HCPCS: 36561; 71045; 76000; C1788; J0690; J1100; J1644; J2250; J2405; J2704; J3010

== ENCOUNTER 2021-11-11 18:40 | Emergency (ER) | payer MEDICARE, OTHER, SELFPAY ==
[2021-11-11 19:03] VITALS: BP 130/82; PULSE 85; RESP 24; O2SAT 96
--- NOTE | 2021-11-11 21:11 | ED_ITS ---
HPI - Nausea/Vomiting/Diarrhea General Chief complaint: Nausea/Vomiting/Diarrhea Stated complaint: cancer patient, pain, constipation, diarrhea Time Seen by Provider: 11/11/21 22:07 Source: patient Mode of arrival: Wheelchair History of Present Illness HPI Narrative: 75-year-old female former smoker with lung cancer, currently being treated with chemotherapy, most recently 2 weeks ago, as well as recently treated metastatic lesion in her brain treated by radiation and surgery presents with family in the chief complaint of generalized weakness and fatigue, decreased appetite, not eating, not drinking with increasing lower abdominal pain. He is had episodes of constipation and diarrhea and is nauseated but not necessarily vomiting. She is had no fever chills and denies any chest pain or shortness of breath. She states that she is no significant or obvious abnormalities with urinating Related Data Home Medications Medication Instructions Recorded Confirmed MULTIVITAMIN 1 cap PO Q DAY ##0 09/20/11 08/25/21 acetaminophen 325 mg tablet 650 mg PO Q6H PRN 08/25/21 08/25/21 (Tylenol) cholecalciferol (vitamin D3) 25 25 mcg PO DAILY 08/25/21 08/25/21 mcg (1,000 unit) capsule dexamethasone 2 mg tablet 2 mg PO BID 08/25/21 09/22/21 lisinopril 20 mg tablet 20 mg PO DAILY 08/25/21 09/22/21 nicotine 14 mg/24 hr daily 1 patch transdermal DAILY 08/25/21 09/22/21 transdermal patch omeprazole 20 mg capsule,delayed 20 mg PO DAILY 08/25/21 09/22/21 release ondansetron 4 mg disintegrating 4 mg PO Q8H 08/25/21 09/22/21 tablet oxycodone 5 mg tablet 5 mg PO Q4H PRN Pain (Scale Score 08/25/21 09/22/21 1-3) polyethylene glycol 3350 17 gram 17 g PO DAILY 08/25/21 09/22/21 oral powder packet (Miralax) sennosides 8.6 mg tablet (Natural 17.2 mg PO BEDTIME PRN constipation 08/25/21 09/22/21 Senna Laxative) vitamin B complex (B 1 tab PO DAILY 08/25/21 09/22/21 Complex-Vitamin B12 tablet) Previous Rx's Medication Instructions Recorded simvastatin 20 mg tablet 20 mg PO HS #90 tabs 11/03/20 triamcinolone acetonide 0.1 % 1 applic topical BID #15 grams 04/15/21 topical cream hydrocodone 5 mg-acetaminophen 325 1 tab PO Q8H PRN pain #10 tabs 09/22/21 mg tablet Allergies Allergy/AdvReac Type Severity Reaction Status Date / Time No Known Drug Allergies Allergy Verified 09/22/21 07:05 Review of Systems Review of Systems Narrative: GENERAL: See HPI HEENT: Denies sinus pain, ear pain, sore throat, difficulty swallowing, dizziness. RESPIRATORY: Denies dyspnea, cough, wheezing, hemoptysis, sputum. CARDIOVASCULAR: Denies chest pain, palpitations, orthopnea, edema, GASTROINTESTINAL: See HPI : Denies dysuria, frequency, incontinence, hematuria, urinary retention. MUSCULOSKELETAL: denies weakness, joint pain, or bony pain SKIN: Denies rash, skin lesions, or other NEUROLOGIC: Denies weakness, headache, numbness, change in speech, confusion, seizures, incoordination. PSYCHIATRIC: No concerning psychosocial issues. 12 point review of systems is negative except for those stated above Patient History Medical History Arthritis of carpometacarpal (CMC) joint of left thumb Cervical stenosis of spinal canal Facet arthropathy, cervical Foraminal stenosis of cervical region Impingement syndrome of left shoulder Myelomalacia of cervical cord Surgical History History of tonsillectomy Status post tubal ligation Social History marital status: household members: family Smoking Status: Former smoker alcohol intake: current substance use type: does not use Smoking Status: Former smoker alcohol intake frequency: holidays/special occasions only Substance Use Type: does not use Exam Narrative Exam Narrative: GENERAL: [75] year old patient appears stated age. Well-developed patient, in mild distress. HEAD: Atraumatic. Normocephalic. EYES: Pupils equal round and reactive. Extraocular motions intact. No scleral icterus. No injection or drainage. ENT: Nose without bleeding, purulent drainage. Throat without erythema, tonsillar hypertrophy or exudate. Airway patent. NECK: Trachea midline. Non tender CARDIOVASCULAR: Regular rate and rhythm without murmurs, gallops, or rubs. RESPIRATORY: Decreased lung sounds bilaterally with prolonged expiratory phase GASTROINTESTINAL: Abdomen soft, non-tender, nondistended. RECTAL: no fissure and hemorrhoid. Firm stool palpated at most superior extent of rectal vault. No ability to manually disimpact EXTREMITIES: No edema or joint tenderness. BACK: Nontender without deformity or crepitance. No flank tenderness. NEURO: AOx3. SKIN: No rash or erythema of visible areas Initial Vital Signs Initial Vital Signs: Vital Signs Pulse Rate 85 11/11/21 19:03 Respiratory Rate 24 11/11/21 19:03 Blood Pressure 130/82 11/11/21 19:03 Pulse Oximetry 96 11/11/21 19:03 Oxygen Delivery Method 11/11/21 19:03 Course Course Course Narrative: Patient had small, firm passage of stool after Dulcolax suppository, enema resulted in some more stool and patient largely had improvement of symptoms with episodes of colicky type exacerbation. History and physical as well as labs and imaging are very reassuring, discomfort most likely a consequence of constipation. Discussion regarding advanced imaging with patient and daughter and we sure the opinion that it is unlikely to have any significant abnormalities that would result in a change in plan. Return precautions given and questions answered to their apparent satisfaction Orders Ordered: ED Orders 11/11/21 22:07 XR acute abdomen series Stat 11/11/21 23:30 Complete Blood Count AUTO DIFF Stat Comprehensive Metabolic Panel Stat Magnesium Stat Discontinued Medications Bisacodyl (Bisacodyl 10 Mg Supp) 10 mg UT NOW ONE Stop: 11/11/21 23:53 Last Admin: 11/12/21 00:04 Dose: 10 mg Documented By: TOM Sodium Chloride (Normal Saline 0.9%) 1,000 mls @ 1,000 mls/hr IV BOLUS ONE Stop: 11/11/21 23:48 Last Infusion: 11/12/21 00:30 Dose: 0 mls/hr Documented By: Admin: 11/11/21 23:18 Dose: 1,000 mls/hr Documented By: TOM Mineral Oil (Mineral Oil 1 Each Enema) 1 each UT NOW ONE Stop: 11/12/21 00:46 Last Admin: 11/12/21 00:56 Dose: 1 each Documented By: TOM Vital Signs Vital signs: Vital Signs - 8 hr 11/12/21 03:30 Pulse Rate 80 Respiratory Rate 23 Blood Pressure 128/81 Pulse Oximetry 97 Oxygen Delivery Method Room Air MDM - Nausea/Vomiting/Diarrhea Lab Data Result diagrams: 11/11/21 23:30 11/11/21 23:30 Labs: Lab Results 11/11/21 11/11/21 Range/Units 23:30 23:30 WBC 5.2 (4.5-11.0) X10^3/uL RBC 2.65 L (4.0-5.2) X10^6/uL Hgb 9.3 L (12.0-16.0) g/dL Hct 26.9 L (36-46) % MCV 101.5 H (80-100) fL MCH 35.1 H (26-34) PG MCHC 34.6 (30-36) % RDW 15.3 H (11.6-14.8) % Plt Count 186 (150-400) X10^3/uL Neut % (Auto) 54.3 (50-75) % Lymph % (Auto) 21.9 L (25-40) % Carson % (Auto) 22.6 H (3-14) % Eos % (Auto) 0.9 L (2-4) % Baso % (Auto) 0.3 (0-2) % Neut # (Auto) 2800 (0294-6432) /uL Lymph # (Auto) 1100 (9668-5998) /uL Carson # (Auto) 1200 H (0-900) /uL Eos # (Auto) 0 (0-450) /uL Baso # (Auto) 0 (0-100) /uL Sodium 135 L (137-145) mmol/L Potassium 3.0 L (3.4-5.1) mmol/L Chloride 104 (98-107) mmol/L Carbon Dioxide 23 (22-32) mmol/L BUN 16 (7-17) mg/dL Creatinine 0.79 (0.52-1.04) mg/dL Estimated GFR > 60 (>60) mL/min BUN/Creatinine Ratio 20.3 (6-22) Glucose 77 L (80-110) mg/dL Calcium 8.5 (8.4-10.2) mg/dL Magnesium 1.9 (1.6-2.3) mg/dL Total Bilirubin 0.5 (0.2-1.3) mg/dL AST 24 (14-36) IU/L ALT 15 (<35) IU/L Alkaline Phosphatase 95 (38-126) U/L Total Protein 6.2 L (6.3-8.2) g/dL Albumin 3.3 L (3.5-5.0) g/dL Globulin 2.9 (1.7-4.1) g/dL Albumin/Globulin Ratio 1.1 (1.0-2.8) Discharge Plan Departure Patient Disposition: Home Clinical Impression: Abdominal pain, Constipation Instructions: DI for Abdominal Pain-Adult, DI for Constipation Activity Restrictions/Additional Instructions: *You have been diagnosed with [ abdominal pain due to constipation ] *What to do: *Take over the counter medications as directed: 1. Metamucil - is a bulk forming laxative and adds fiber 2. Colace - softens your stool 3. Dulcolax suppository - stimulates your bowels *Follow up with your primary care provider in 2-3 days, call for appointment *Return to ER if you should have any new, worsening or concerning symp toms *Drink plenty of water and eat foods high in fiber *Stay as active as you can as this helps move your bowels as well Prescriptions: No Action acetaminophen [Tylenol] 325 mg tablet 650 mg PO Q6H PRN cholecalciferol (vitamin D3) 25 mcg (1,000 unit) capsule 25 mcg PO DAILY lisinopril 20 mg tablet 20 mg PO DAILY dexamethasone 2 mg tablet 2 mg PO BID nicotine 14 mg/24 hr patch 24 hour 1 patch transdermal DAILY omeprazole 20 mg capsule,delayed release(DR/EC) 20 mg PO DAILY ondansetron 4 mg tablet,disintegrating 4 mg PO Q8H polyethylene glycol 3350 [Miralax] 17 gram powder in packet 17 g PO DAILY sennosides [Natural Senna Laxative] 8.6 mg tablet 17.2 mg PO BEDTIME PRN (Reason: constipation) vitamin B complex [B Complex-Vitamin B12] Tablet 1 tab PO DAILY oxycodone 5 mg tablet 5 mg PO Q4H PRN (Reason: Pain (Scale Score 1-3)) Rx Instructions: 0.5-1 TABLET (2.5-5MG) PO every 4 hours PRN; MULTIVITAMIN 1 cap PO Q DAY Qty: 0 simvastatin 20 mg tablet 20 mg PO HS Qty: 90 3RF triamcinolone acetonide 0.1 % cream 1 applic Topical BID Qty: 15 1RF hydrocodone-acetaminophen 5-325 mg tablet 1 tab PO Q8H PRN (Reason: pain) Qty: 10 0RF Referrals: Alberto Hawley MD [Primary Care Provider] - Visit Report Forms: Patient Portal/API
--- NOTE | 2021-11-11 22:07 | DI.RAD.S_ITS ---
PROCEDURE: XR ACUTE ABDOMEN SERIES INDICATIONS: abdominal pain, constipation, diarrhea TECHNIQUE: One view chest and two views of the abdomen were acquired. COMPARISON: [facility], CR, XR CHEST 1V, 09/22/2021, 8:41. [facility], CT, CT CHEST ABD PEL W CON, 08/10/2021, 16:59. [facility], CR, XR CHEST 1V, 09/22/2021, 9:04. FINDINGS: Surgical changes and devices: Right internal jugular Port-A-Cath appears stable in position. Chest: Left apical mass appears similar to the prior studies. There is hyperinflation of the lungs with flattening of the hemidiaphragms compatible with COPD. No acute consolidation. Heart size is normal. No pleural effusions. No pneumoperitoneum. Abdomen: Bowel gas pattern demonstrates a moderate amount of colonic stool most prominent in the rectum. No dilated small bowel loops to suggest obstruction. No suspicious calcifications. Bones: No suspicious bony lesions. IMPRESSION: 1. Moderate colonic stool distention most prominent in the rectum compatible with history of constipation with possible fecal impaction. No definite evidence of bowel obstruction. 2. Left apical mass redemonstrated. Dictated by: Pio Wood M.D. on 11/11/2021 at 23:13 Approved by: Pio Wood M.D. on 11/11/2021 at 23:16
[2021-11-11] MEDS: SODIUM CHLORIDE 0.9% 1,000 ML 1000 ML IV (23:18)
[2021-11-11 23:42] LABS: Add Manual Diff / Slide Review NO; Basophils Absolute Auto 0 /uL (0-100); Basophils Percent Auto 0.3 % (0-2); Eosinophils Absolute Auto 0 /uL (0-450); Eosinophils Percent Auto 0.9 % (2-4); Hematocrit 26.9 % (36-46); Hemoglobin 9.3 g/dL (12.0-16.0); Lymphocytes Absolute Auto 1100 /uL (1100-4500); Lymphocytes Percent Auto 21.9 % (25-40); Mean Corpuscular HGB Conc 34.6 % (30-36); Mean Corpuscular Hemoglobin 35.1 PG (26-34); Mean Corpuscular Volume 101.5 fL (80-100); Monocytes Absolute Auto 1200 /uL (0-900); Monocytes Percent Auto 22.6 % (3-14); Neutrophils Absolute Auto 2800 /uL (1500-7000); Neutrophils Percent Auto 54.3 % (50-75); Platelet Count 186 X10^3/uL (150-400); Red Blood Cell Count 2.65 X10^6/uL (4.0-5.2); Red Cell Distribution Width 15.3 % (11.6-14.8); White Blood Cell Count 5.2 X10^3/uL (4.5-11.0)
[2021-11-11 23:50] LABS: Alanine Aminotransferase 15 IU/L (<35); Albumin 3.3 g/dL (3.5-5.0); Albumin Globulin Ratio 1.1 (1.0-2.8); Alkaline Phosphatase 95 U/L (38-126); Aspartate Aminotransferase 24 IU/L (14-36); BUN Creatinine Ratio 20.3 (6-22); Bilirubin Total 0.5 mg/dL (0.2-1.3); Blood Urea Nitrogen 16 mg/dL (7-17); Calcium 8.5 mg/dL (8.4-10.2); Carbon Dioxide 23 mmol/L (22-32); Chloride 104 mmol/L (98-107); Estimated Glomerular Filt Rate > 60 mL/min (>60); Globulin 2.9 g/dL (1.7-4.1); Glucose 77 mg/dL (80-110); HEMOLYSIS < 15 (0-50); Magnesium 1.9 mg/dL (1.6-2.3); Sodium 135 mmol/L (137-145); Total Protein 6.2 g/dL (6.3-8.2)
[2021-11-12] MEDS: BISACODYL 10 MG SUPP PR (00:04)
[2021-11-12] MEDS: MINERAL OIL 1 EACH ENEMA PR (00:56)
--- NOTE | 2021-11-12 02:27 | PC.NURSE ---
0225 pt crying out in pain, c/o rectal pain r/t can't get anything out, notified
[2021-11-12 03:30] VITALS: BP 128/81; PULSE 80; RESP 23; O2SAT 97
== END 2021-11-12 03:31 | disposition home or self-care (01) ==
PROVIDERS: Emergency Provider Emergency Medicine; Family Provider Family Medicine; PCP Family Medicine; Referring Provider Internal Medicine Hematology & Oncology
DX: K59.00 Constipation, unspecified (principal); R10.30 Lower abdominal pain, unspecified
CPT/HCPCS: 36415; 74022; 80053; 83735; 85025; 96360; 99284

== ENCOUNTER → 2021-12-03 13:22 | Outpatient (CLI) | payer MEDICARE, OTHER, SELFPAY | PROVIDERS: Family Provider Family Medicine; PCP Family Medicine; Visit Provider Physician Assistant Medical | DX: N39.0 Urinary tract infection, site not specified (principal) | CPT/HCPCS: 87077; 87086; 87186 ==

== ENCOUNTER 2021-12-06 10:11 | Inpatient (IN) | payer MEDICARE, OTHER, SELFPAY ==
[2021-12-06] VITALS (17 sets, daily range): BP systolic 89–111; BP diastolic 53–63; PULSE 62–80; RESP 16–44; TEMP 36.6–36.7; O2SAT 93–100; BMI 17.9; BMI 17.2
[2021-12-06 10:48] LABS: INR 1.1 (0.9-1.3); Prothrombin Time 12.1 SECONDS (10.1-12.7)
[2021-12-06 10:50] LABS: Hematocrit 27.7 % (36-46); Hemoglobin 9.7 g/dL (12.0-16.0); Mean Corpuscular HGB Conc 35.1 % (30-36); Mean Corpuscular Hemoglobin 36.3 PG (26-34); Mean Corpuscular Volume 103.4 fL (80-100); Platelet Count 291 X10^3/uL (150-400); Red Blood Cell Count 2.67 X10^6/uL (4.0-5.2); Red Cell Distribution Width 18.4 % (11.6-14.8); White Blood Cell Count 6.1 X10^3/uL (4.5-11.0)
[2021-12-06 10:51] LABS: PTT Partial Thromboplastin Tim 29 SECONDS (26-36)
[2021-12-06 10:52] LABS: Add Manual Diff / Slide Review YES
[2021-12-06 11:05] LABS: Alanine Aminotransferase 25 IU/L (<35); Albumin 3.4 g/dL (3.5-5.0); Albumin Globulin Ratio 1.1 (1.0-2.8); Alkaline Phosphatase 99 U/L (38-126); Aspartate Aminotransferase 36 IU/L (14-36); BUN Creatinine Ratio 23.1 (6-22); Bilirubin Total 0.3 mg/dL (0.2-1.3); Blood Urea Nitrogen 30 mg/dL (7-17); Calcium 9.5 mg/dL (8.4-10.2); Carbon Dioxide 21 mmol/L (22-32); Chloride 102 mmol/L (98-107); Estimated Glomerular Filt Rate 43 mL/min (>60); Glucose 110 mg/dL (80-110); HEMOLYSIS < 15 (0-50); Lipase 30 U/L (23-300); Magnesium 2.3 mg/dL (1.6-2.3); Potassium 4.7 mmol/L (3.4-5.1); Sodium 130 mmol/L (137-145); Total Protein 6.4 g/dL (6.3-8.2)
[2021-12-06] MEDS: SODIUM CHLORIDE 0.9% 1,000 ML 1000 ML IV (11:53)
[2021-12-06] MEDS: ONDANSETRON 4 MG/2 ML INJ IV ×2 (11:53→18:01)
--- NOTE | 2021-12-06 11:56 | ED.WEAKNESS ---
HPI - Weakness General Chief complaint: Weakness Stated complaint: falls/weakness Time Seen by Provider: 12/06/21 11:43 Source: patient Mode of arrival: EMS Limitations: no limitations History of Present Illness HPI Narrative: 76-year-old female with known metastatic lung cancer with Mets to the brain. Patient has been receiving her chemotherapy at [facility] with Dr. Bailey and received whole-brain radiation for 10 days after neurosurgery on August 13. Patient presents with increasing decrease in appetite, daughter states she is not taking fluids she is not taking solids, they have been doing weekly hydration as an outpatient but overnight patient had falls once off the toilet once slid out of bed and once while trying to walk to the bathroom in the last 12 hours, patient has not had any fevers or chills. She would a recent UTI and was on antibiotics had completed them yet. She is been increasingly weak but no lateralizing weakness that is specific or new. No chest pain or shortness of breath. Unclear if she is having any true nausea patient states she isn't but food does make her feel worse. She has been having liquidy diarrhea and feels like there is large hard chunks of stool in the rectum. Patient has had some rectal pain and has hemorrhoids. She denies abdominal back or flank pain. Patient family noted that she started on lisinopril secondary to brain metastases and has been taking this, blood pressure is low today daughter states systolic is typically more 110s range. Related Data Home Medications Medication Instructions Recorded Confirmed MULTIVITAMIN 1 cap PO Q DAY ##0 09/20/11 12/06/21 acetaminophen 325 mg tablet 650 mg PO Q6H PRN Pain (Scale 08/25/21 12/06/21 (Tylenol) Score 1-3) cholecalciferol (vitamin D3) 25 25 mcg PO DAILY 08/25/21 12/06/21 mcg (1,000 unit) capsule lisinopril 20 mg tablet 20 mg PO DAILY 08/25/21 12/06/21 nicotine 14 mg/24 hr daily 1 patch transdermal DAILY 08/25/21 12/06/21 transdermal patch ondansetron 4 mg disintegrating 4 mg PO Q8H 08/25/21 12/06/21 tablet polyethylene glycol 3350 17 gram 17 g PO PRN PRN Constipation 08/25/21 12/06/21 oral powder packet (Miralax) sennosides 8.6 mg tablet (Natural 17.2 mg PO BEDTIME PRN constipation 08/25/21 12/06/21 Senna Laxative) vitamin B complex (B 1 tab PO DAILY 08/25/21 12/06/21 Complex-Vitamin B12 tablet) folic acid 1 mg tablet 1 mg PO DAILY 12/06/21 12/06/21 memantine 10 mg tablet 10 mg PO BID 12/06/21 12/06/21 potassium chloride 20 mEq 20 meq PO DAILY 12/06/21 12/06/21 tablet,extended release Previous Rx's Medication Instructions Recorded simvastatin 20 mg tablet 20 mg PO HS #90 tabs 11/03/20 triamcinolone acetonide 0.1 % 1 applic topical BID #15 grams 04/15/21 topical cream hydrocodone 5 mg-acetaminophen 325 1 tab PO Q8H PRN pain #10 tabs 09/22/21 mg tablet nitrofurantoin 100 mg PO Q12H 5 days #10 caps 12/03/21 monohydrate/macrocrystals 100 mg capsule (Macrobid) Allergies Allergy/AdvReac Type Severity Reaction Status Date / Time No Known Drug Allergies Allergy Verified 12/03/21 13:40 Patient History Medical History Arthritis of carpometacarpal (CMC) joint of left thumb Cervical stenosis of spinal canal Facet arthropathy, cervical Foraminal stenosis of cervical region Impingement syndrome of left shoulder Myelomalacia of cervical cord Surgical History History of tonsillectomy Status post tubal ligation Social History marital status: household members: family Smoking Status: Former smoker alcohol intake: current substance use type: does not use Smoking Status: Former smoker alcohol intake frequency: holidays/special occasions only Substance Use Type: does not use Exam Initial Vital Signs Initial Vital Signs: Vital Signs Pulse Rate 80 12/06/21 10:15 Blood Pressure 104/63 12/06/21 10:15 Pulse Oximetry 99 12/06/21 10:15 Course Orders Ordered: Acetaminophen (Acetaminophen 325 Mg Tablet) 650 mg PO Q6H PRN PRN Reason: Pain, Mild (1-3) Last Admin: 12/08/21 08:45 Dose: 650 mg Documented By: Admin: 12/07/21 17:05 Dose: 650 mg Documented By: Admin: 12/07/21 09:09 Dose: 650 mg Documented By: Admin: 12/06/21 21:46 Dose: 650 mg Documented By: MAULIK Hydrocodone Bitart/Acetaminophen (Hydrocodone/Acet 5/325 Tablet) 1 tab PO Q8H PRN PRN Reason: pain Last Admin: 12/08/21 12:55 Dose: 1 tab Documented By: Admin: 12/07/21 22:18 Dose: 1 tab Documented By: Admin: 12/07/21 06:25 Dose: 1 tab Documented By: Admin: 12/06/21 18:00 Dose: 1 tab Documented By: Bisacodyl (Bisacodyl 5 Mg Tablet) 10 mg PO BID PRN PRN Reason: Constipation Last Admin: 12/07/21 10:08 Dose: 10 mg Documented By: AMOS Enoxaparin Sodium (Enoxaparin 30 Mg/0.3 Ml Syringe) 30 mg SUBCUT DAILY [facility] Last Admin: 12/08/21 08:46 Dose: 30 mg Documented By: Admin: 12/07/21 09:08 Dose: 30 mg Documented By: Gabapentin (Gabapentin 300 Mg Capsule) 300 mg PO BID [facility] Last Admin: 12/08/21 08:45 Dose: 300 mg Documented By: Admin: 12/07/21 21:17 Dose: 300 mg Documented By: Admin: 12/07/21 09:09 Dose: 300 mg Documented By: Memantine (Memantine Hcl 5 Mg Tablet) 10 mg PO BID [facility] Last Admin: 12/08/21 08:45 Dose: 10 mg Documented By: Admin: 12/07/21 21:17 Dose: 10 mg Documented By: Admin: 12/07/21 12:22 Dose: 10 mg Documented By: AMOS Nicotine (Nicotine 14 Patch) 14 mg TOP DAILY [facility] Last Admin: 12/08/21 08:46 Dose: 14 mg Documented By: Admin: 12/07/21 09:09 Dose: 14 mg Documented By: Nitrofurantoin Macrocrystals (Nitrofurantoin Er 100 Mg Capsule) 100 mg PO BID [facility] Stop: 12/08/21 21:01 Last Admin: 12/08/21 08:45 Dose: 100 mg Documented By: Admin: 12/07/21 21:17 Dose: 100 mg Documented By: Admin: 12/07/21 09:08 Dose: 100 mg Documented By: Admin: 12/06/21 23:01 Dose: 100 mg Documented By: MAULIK Ondansetron HCl (Ondansetron 4 Mg Odt) 4 mg PO Q8H PRN PRN Reason: nasua Last Admin: 12/08/21 11:26 Dose: 4 mg Documented By: Admin: 12/07/21 18:34 Dose: 4 mg Documented By: Ondansetron HCl (Ondansetron 4 Mg/2 Ml Inj) 4 mg IV Q4HR PRN PRN Reason: Nausea And Vomiting Last Admin: 12/08/21 16:52 Dose: 4 mg Documented By: Admin: 12/06/21 18:01 Dose: 4 mg Documented By: Oxycodone HCl (Oxycodone Ir 5 Mg Tablet) 0 mg PO Q4HR PRN PRN Reason: Pain, Moderate (4-6) Last Admin: 12/07/21 17:05 Dose: 5 mg Documented By: Phenyleph/Shark Oil/Min Oil/Petrol (Phenyleph/Mineral Oil/Petrolat 57 Gm Oint) 1 applic [place] QID PRN PRN Reason: Hemorrhoids Last Admin: 12/07/21 16:28 Dose: 1 applictn Documented By: Admin: 12/07/21 10:07 Dose: 1 applictn Documented By: AMOS Polyethylene Glycol (Polyethylene Glycol 3350 17 Gm Powd.Pack) 17 gm PO DAILY [facility] Last Admin: 12/08/21 08:33 Dose: Not Given Documented By: Admin: 12/07/21 09:08 Dose: 17 gm Documented By: MS Potassium Chloride (Potassium Chloride 20 Meq/15 Ml Udc) 20 meq PO BIDWM [facility] Last Admin: 12/08/21 16:51 Dose: 20 meq Documented By: KARINA Sennosides (Sennosides 8.6 Mg Tablet) 17.2 mg PO BEDTIME PRN PRN Reason: constipation Discontinued Medications Dexamethasone (Dexamethasone 1 Mg Tablet) 2 mg PO BID [facility] Last Admin: 12/06/21 17:48 Dose: Not Given Documented By: AMOS Dexamethasone (Dexamethasone 4 Mg Tablet) 4 mg PO NOW ONE Stop: 12/08/21 16:37 Last Admin: 12/08/21 16:51 Dose: 4 mg Documented By: KARINA Furosemide (Furosemide 40 Mg/4 Ml Vial) 40 mg IV NOW ONE Stop: 12/07/21 08:06 Last Admin: 12/07/21 18:00 Dose: 40 mg Documented By: Sodium Chloride (Normal Saline 0.9%) 1,000 mls @ 1,000 mls/hr IV BOLUS ONE Stop: 12/06/21 12:35 Last Infusion: 12/06/21 14:35 Dose: 0 mls/hr Documented By: Admin: 12/06/21 11:53 Dose: 1,000 mls/hr Documented By: VERONICA Sodium Chloride (Normal Saline 0.9%) 1,000 mls @ 150 mls/hr IV CONT SAMMY Last Admin: 12/06/21 16:29 Dose: Not Given Documented By: AMOS Dextrose/Sodium Chloride (Dextrose 5%-0.9% Ns) 1,000 mls @ 125 mls/hr IV CONT SAMMY Last Infusion: 12/07/21 14:40 Dose: 0 mls/hr Documented By: Admin: 12/07/21 09:21 Dose: 125 mls/hr Documented By: Infusion: 12/07/21 00:32 Dose: 125 mls/hr Documented By: Admin: 12/06/21 16:32 Dose: 125 mls/hr Documented By: AMOS POTASSIUM CHLORIDE IN WATER (Potassium Cl 10 Meq/100 Ml Magy) 10 meq in 100 mls @ 100 mls/hr IV Q1H SAMMY Stop: 12/07/21 12:14 Last Admin: 12/07/21 10:41 Dose: Not Given Documented By: Admin: 12/07/21 10:41 Dose: Not Given Documented By: AMOS Mineral Oil (Mineral Oil 1 Each Enema) 1 each [place] NOW ONE Stop: 12/06/21 13:44 Last Admin: 12/06/21 16:29 Dose: Not Given Documented By: AMOS Morphine Sulfate (Morphine 4 Mg/Ml Inj) 4 mg IV NOW ONE Stop: 12/06/21 22:44 Last Admin: 12/06/21 23:01 Dose: 4 mg Documented By: MAULIK Ondansetron HCl (Ondansetron 4 Mg/2 Ml Inj) 4 mg IV NOW ONE Stop: 12/06/21 11:37 Last Admin: 12/06/21 11:53 Dose: 4 mg Documented By: CSD Potassium Chloride (Potassium Chloride 20 Meq Tab) 40 meq PO NOW ONE Stop: 12/07/21 09:35 Last Admin: 12/07/21 10:08 Dose: 40 meq Documented By: CM Potassium Chloride (Potassium Chloride 20 Meq Tab) 40 meq PO NOW ONE Stop: 12/08/21 10:01 Last Admin: 12/08/21 09:44 Dose: 40 meq Documented By: BT Consultations Consultation #1: Dr. Hawley, accepts for acute kidney injury, anemia, dehydration secondary to decreased intake in a patient with known metastatic disease. Vital Signs Vital signs: Vital Signs - 8 hr 12/06/21 10:24 12/06/21 10:15 12/06/21 10:15 Temperature 97.9 F Pulse Rate 77 80 Respiratory Rate 16 Blood Pressure 104/63 104/63 Pulse Oximetry 98 99 Oxygen Delivery Method Room Air 12/06/21 10:30 12/06/21 10:51 12/06/21 10:51 Temperature Pulse Rate 73 70 Respiratory Rate Blood Pressure 101/56 L Pulse Oximetry 98 99 Oxygen Delivery Method 12/06/21 11:00 12/06/21 11:11 12/06/21 11:12 Temperature Pulse Rate 71 72 71 Respiratory Rate Blood Pressure Pulse Oximetry 98 99 99 Oxygen Delivery Method Room Air 12/06/21 11:12 12/06/21 11:30 12/06/21 11:30 Temperature Pulse Rate 68 Respiratory Rate Blood Pressure 95/56 L 89/53 L Pulse Oximetry 99 Oxygen Delivery Method 12/06/21 11:53 12/06/21 12:00 12/06/21 12:09 Temperature Pulse Rate 72 Respiratory Rate Blood Pressure 105/59 L Pulse Oximetry 100 Oxygen Delivery Method 12/06/21 12:30 12/06/21 12:30 12/06/21 13:12 Temperature Pulse Rate 67 69 Respiratory Rate 24 44 H Blood Pressure 99/63 Pulse Oximetry 100 Oxygen Delivery Method 12/06/21 13:30 Temperature Pulse Rate 63 Respiratory Rate 31 H Blood Pressure Pulse Oximetry Oxygen Delivery Method MDM - Weakness Lab Data Result diagrams: 12/08/21 06:30 12/08/21 06:30 Labs: Lab Results 12/06/21 12/06/21 12/06/21 Range/Units 10:16 10:16 10:16 WBC 6.1 (4.5-11.0) X10^3/uL RBC 2.67 L (4.0-5.2) X10^6/uL Hgb 9.7 L (12.0-16.0) g/dL Hct 27.7 L (36-46) % MCV 103.4 H (80-100) fL MCH 36.3 H (26-34) PG MCHC 35.1 (30-36) % RDW 18.4 H (11.6-14.8) % Plt Count 291 (150-400) X10^3/uL Neut % (Auto) Not Reportable Lymph % (Auto) Not Reportable [place] % (Auto) Not Reportable Eos % (Auto) Not Reportable Baso % (Auto) Not Reportable Lymph # (Auto) Not Reportable [place] # (Auto) Not Reportable Baso # (Auto) Not Reportable Total Counted 100 Seg Neutrophils % 37.0 L (38-70) % Band Neutrophils % 17.0 H (3-7) % Lymphocytes % (Manual) 20.0 L (25-45) % Monocytes % (Manual) 26.0 H (2-11) % Neutrophils # (Manual) 3294 (7313-6860) /uL Platelet Estimate Adequate on smear RBC Morphology Norm PT 12.1 (10.1-12.7) SECONDS INR 1.1 (0.9-1.3) APTT 29 (26-36) SECONDS Sodium 130 L (137-145) mmol/L Potassium 4.7 (3.4-5.1) mmol/L Chloride 102 (98-107) mmol/L Carbon Dioxide 21 L (22-32) mmol/L BUN 30 H (7-17) mg/dL Creatinine 1.30 H (0.52-1.04) mg/dL Estimated GFR 43 L (>60) mL/min BUN/Creatinine Ratio 23.1 H (6-22) Glucose 110 (80-110) mg/dL Calcium 9.5 (8.4-10.2) mg/dL Magnesium 2.3 (1.6-2.3) mg/dL Total Bilirubin 0.3 (0.2-1.3) mg/dL AST 36 (14-36) IU/L ALT 25 (<35) IU/L Alkaline Phosphatase 99 (38-126) U/L Total Protein 6.4 (6.3-8.2) g/dL Albumin 3.4 L (3.5-5.0) g/dL Globulin 3.0 (1.7-4.1) g/dL Albumin/Globulin Ratio 1.1 (1.0-2.8) Lipase 30 (23-300) U/L Imaging Data CT scan - head: Radiologist Impression: Close Abdomen/Pelvis CT (Signed) Marleen Vogel - 12/06/[address] (Signed) Marleen Vogel - 12/06/21 Chest X-Ray (Signed) Marleen Vogel - 12/06/21 Chest/Abdomen X-ray (Signed) Pio Wood - 11/11/21 Chest X-Ray (Signed) Alberto Kohli - 09/22/21 Chest X-Ray (Signed) Dre Bird - 09/22/21 Chest/Abdomen/Pelvis CT (Signed) Dre Bird - 08/10/21 Lumbar Spine MRI (Signed) Dre Bird - 08/10/[address] (Signed) Courtney Parr - 08/10/[address] (Signed) Marleen Vogel - 08/10/21 Chest X-Ray (Signed) Marleen Vogel - 08/10/21 Shoulder X-Ray (Signed) Sheri Baer - 06/08/21 Foot X-Ray (Signed) Frank Hart - 03/25/20 Cervical Spine MRI (Signed) Ricco Ferrari - 06/18/19 Cervical Spine X-Ray (Signed) Gino Rodríguez - 04/23/19 Brain MRI (Signed) Courtney Parr - 04/09/19 Hip X-Ray (Signed) Courtney Parr - 08/08/[address] [address] [address] Scan Report Signed Patient: Areli Ac MR#: [id number] : 1945 Acct:[id number] Age/Sex: 76 / F Date of Service: 12/06/21 Loc: ED Accession Number: [id number] ?? Procedure: CT head/brain wo/w con Ordering Provider: Beatrice Strauss D.O. PROCEDURE:? CT HEAD/BRAIN WO/W CON ? INDICATIONS:? weakness, known lung ca w/ mets brain ? TECHNIQUE:? 4.5 mm thick angled axial sections acquired from the foramen magnum to the vertex both before and after the administration of intravenous contrast, with coronal and sagittal reformats.? For radiation dose reduction, the following was used:? automated exposure control, adjustment of mA and/or kV according to patient size.? ? COMPARISON:? [facility], CT, CT HEAD/BRAIN WO CON, 08/10/2021, 10:03. ? FINDINGS:? Image quality:? Excellent.? ? CSF spaces:? Basal cisterns are patent.? No extra-axial fluid collections.? Ventricles are symmetric in size and shape.? ? Brain:? No midline shift.? No acute intracranial bleeds.? Resection cavity within the left cerebellar hemisphere, new since the prior examination.? Calcified masses within the right occipital parietal lobe are present, as before.? There is cerebral volume loss for age.? There is periventricular white matter chronic small vessel ischemic change.? There is intracranial internal carotid artery atherosclerosis.? ? Skull and face:? Left suboccipital craniotomy has been performed, new since the prior examination. ? Sinuses:? Visualized sinuses and mastoids are clear.? ? IMPRESSION:? 1. Postsurgical sequelae. 2. Right parietal occipital brain metastases, as before. 3. No acute intracranial abnormality.? ? ? Dictated by: Marleen Vogel M.D. on 12/06/2021 at 13:22 ? ? Approved by: Marleen Vogel M.D. on 12/06/2021 at 13:24?? CT scan - abdomen/pelvis: Radiologist Impression: Close Abdomen/Pelvis CT (Signed) Marleen Vogel - 12/06/[address] (Signed) Marleen Vogel - 12/06/21 Chest X-Ray (Signed) Marleen Vogel - 12/06/21 Chest/Abdomen X-ray (Signed) Pio Wood - 11/11/21 Chest X-Ray (Signed) Alberto Kohli - 09/22/21 Chest X-Ray (Signed) Dre Bird - 09/22/21 Chest/Abdomen/Pelvis CT (Signed) Nishant Birdderic - 08/10/21 Lumbar Spine MRI (Signed) PelonParamus - 08/10/[address] (Signed) Courtney Parr - 08/10/[address] (Signed) VogelTommie felixlida - 08/10/21 Chest X-Ray (Signed) Marleen Vogel - 08/10/21 Shoulder X-Ray (Signed) KeyurSheri sands - 06/08/21 Foot X-Ray (Signed) RashadFrank desir - 03/25/20 Cervical Spine MRI (Signed) Ricco Ferrari - 06/18/19 Cervical Spine X-Ray (Signed) Gino Rodríguez - 04/23/19 Brain MRI (Signed) Courtney Parr - 04/09/19 Hip X-Ray (Signed) Courtney Parr - 08/08/18 [facility] [address] CT Scan Report Signed Patient: Areli Ac MR#: [id number] : 1945 Acct:[id number] Age/Sex: 76 / F Date of Service: 12/06/21 Loc: ED Accession Number: [id number] ?? Procedure: CT abdomen pelvis w con Ordering Provider: Beatrice Strauss D.O. PROCEDURE:? CT ABDOMEN PELVIS W CON ? INDICATIONS:? n/constipation ? TECHNIQUE:? After the administration of intravenous contrast, axial sections acquired from the lung bases to the pubic symphysis.? Coronal and sagittal reformats were performed.? For radiation dose reduction, the following was used:? automated exposure control, adjustment of mA and/or kV according to patient size.? ? COMPARISON:? [facility], CT, CT CHEST ABD PEL W CON, 08/10/2021, 16:59. ? FINDINGS:? Image quality:? Excellent.? ? Lung bases:? Unremarkable. Heart:? No significant findings. ? ABDOMEN: Liver:? Unremarkable.? ? Gallbladder:? Is contracted? ? Biliary ducts:? Unremarkable.? ? Pancreas:? Unremarkable.? ? Spleen:? Unremarkable.? ? Adrenal Glands:? Unremarkable.? ? Kidneys and Ureters:? Unremarkable.? ? ? Stomach and Bowel:? Stomach and small bowel within normal limits.? Moderate stool within the left colon.? Appendix not seen.? No evidence of appendicitis.? Moderate thickening of the rectum which demonstrates moderate surrounding fat stranding.? Moderate to large amount of stool within the rectum. Peritoneum:? Trace free fluid in the pelvis.? No free air.? ? Ventral Wall: ? No hernias.? Abdominal Nodes:? No retroperitoneal or mesenteric adenopathy by size criteria.? Vessels:? Aorta and inferior vena cava are normal in size.? ? PELVIS: Pelvic Organs:? Unremarkable.? ? Bladder:? Unremarkable.? ? Pelvic Nodes: No enlarged lymph nodes.? Miscellaneous: No hernias are seen. ? ? ? Bones:? There is progressive, subacute on chronic moderate wedging of L2. ? ? IMPRESSION:? 1. Fecal impaction within the rectum. 2. Proctitis. 3. Appendix not seen.? No evidence of appendicitis. 4. L2 compression fracture as above. ? ? Dictated by: Marleen Vogel M.D. on 12/06/2021 at 13:24 ? ? Approved by: Marleen Vogel M.D. on 12/06/2021 at 13:27?? Chest x-ray: Radiologist Impression: Close Abdomen/Pelvis CT (Signed) Marleen Vogel - 12/06/[address] (Signed) Marleen Vogel - 12/06/21 Chest X-Ray (Signed) Marleen Vogel - 12/06/21 Chest/Abdomen X-ray (Signed) Pio Wood - 11/11/21 Chest X-Ray (Signed) Alberto Kohli - 09/22/21 Chest X-Ray (Signed) Dre Bird - 09/22/21 Chest/Abdomen/Pelvis CT (Signed) Dre Bird - 08/10/21 Lumbar Spine MRI (Signed) Dre Bird - 08/10/[address] (Signed) Courtney Parr - 08/10/[address] (Signed) Marleen Voegl - 08/10/21 Chest X-Ray (Signed) Marleen Vogel - 08/10/21 Shoulder X-Ray (Signed) Sheri Baer - 06/08/21 Foot X-Ray (Signed) Frank Hart - 03/25/20 Cervical Spine MRI (Signed) Ricco Ferrari - 06/18/19 Cervical Spine X-Ray (Signed) Gino Rodríguez - 04/23/19 Brain MRI (Signed) KarolynCourtney - 04/09/19 Hip X-Ray (Signed) Parr,Courtney - 08/08/18 [facility] [address] [address] XRay Report Signed Patient: Areli Ac MR#: [id number] : 1945 Acct:[id number] Age/Sex: 76 / F Date of Service: 12/06/21 Loc: ED Accession Number: [id number] ?? Procedure: XR chest 1V Ordering Provider: Beatrice Strauss D.O. PROCEDURE:? XR CHEST 1V ? INDICATIONS:? weakness ? TECHNIQUE:? One view of the chest was acquired.? ? COMPARISON:? [facility], , XR CHEST 1V, 09/22/2021, 9:04. ? FINDINGS:? Body fold project over the left hemithorax. ? Surgical changes and devices:? Right chest wall port catheter, tip of which is in the mid SVC. ? Lungs and pleura:? Lungs are clear.? No pleural effusions or pneumothorax.? ? Mediastinum:? Mediastinal contours appear normal.? Heart size is normal.? ? Bones and chest wall:? No suspicious bony lesions.? Overlying soft tissues appear unremarkable.? ? IMPRESSION:? No acute process. ? ? Dictated by: Marleen Vogel M.D. on 12/06/2021 at 13:30 ? ? Approved by: Marleen Vogel M.D. on 12/06/2021 at 13:30? ECG Data Attestation: I personally reviewed and interpreted this ECG as follows: Interpretation: Sinus rhythm, rate of 69 [place] 148 QRS 78 QTC 417. T-wave depression in V3 through V6. No elevation. Patient has priors but less is from 2016. Discharge Plan Departure Patient Disposition: Admitted as Observation Clinical Impression: PRABHAKAR (acute kidney injury), Acute hyponatremia, Constipation, Anemia Admit Date/Time: 12/06/21 14:39 Admit Provider: Alberto Hawley
[2021-12-06 11:59] LABS: Neutrophils Absolute Manual 3294 /uL (3000-5900); Total Cells Counted 100
[2021-12-06 12:01] LABS: Platelet Estimate Adequate on smear
[2021-12-06 12:02] LABS: RBC Morphology Norm
--- NOTE | 2021-12-06 12:35 | DI.RAD.S_ITS ---
PROCEDURE: XR CHEST 1V INDICATIONS: weakness TECHNIQUE: One view of the chest was acquired. COMPARISON: [facility], CR, XR CHEST 1V, 09/22/2021, 9:04. FINDINGS: Body fold project over the left hemithorax. Surgical changes and devices: Right chest wall port catheter, tip of which is in the mid SVC. Lungs and pleura: Lungs are clear. No pleural effusions or pneumothorax. Mediastinum: Mediastinal contours appear normal. Heart size is normal. Bones and chest wall: No suspicious bony lesions. Overlying soft tissues appear unremarkable. IMPRESSION: No acute process. Dictated by: Marleen Vogel M.D. on 12/06/2021 at 13:30 Approved by: Marleen Vogel M.D. on 12/06/2021 at 13:30
--- NOTE | 2021-12-06 12:35 | DI.CT.S_ITS ---
PROCEDURE: CT HEAD/BRAIN WO/W CON INDICATIONS: weakness, known lung ca w/ mets brain TECHNIQUE: 4.5 mm thick angled axial sections acquired from the foramen magnum to the vertex both before and after the administration of intravenous contrast, with coronal and sagittal reformats. For radiation dose reduction, the following was used: automated exposure control, adjustment of mA and/or kV according to patient size. COMPARISON: [facility], CT, CT HEAD/BRAIN WO CON, 08/10/2021, 10:03. FINDINGS: Image quality: Excellent. CSF spaces: Basal cisterns are patent. No extra-axial fluid collections. Ventricles are symmetric in size and shape. Brain: No midline shift. No acute intracranial bleeds. Resection cavity within the left cerebellar hemisphere, new since the prior examination. Calcified masses within the right occipital parietal lobe are present, as before. There is cerebral volume loss for age. There is periventricular white matter chronic small vessel ischemic change. There is intracranial internal carotid artery atherosclerosis. Skull and face: Left suboccipital craniotomy has been performed, new since the prior examination. Sinuses: Visualized sinuses and mastoids are clear. IMPRESSION: 1. Postsurgical sequelae. 2. Right parietal occipital brain metastases, as before. 3. No acute intracranial abnormality. Dictated by: Marleen Vogel M.D. on 12/06/2021 at 13:22 Approved by: Marleen Vogel M.D. on 12/06/2021 at 13:24
--- NOTE | 2021-12-06 12:42 | DI.CT.S_ITS ---
PROCEDURE: CT ABDOMEN PELVIS W CON INDICATIONS: n/constipation TECHNIQUE: After the administration of intravenous contrast, axial sections acquired from the lung bases to the pubic symphysis. Coronal and sagittal reformats were performed. For radiation dose reduction, the following was used: automated exposure control, adjustment of mA and/or kV according to patient size. COMPARISON: [facility], CT, CT CHEST ABD PEL W CON, 08/10/2021, 16:59. FINDINGS: Image quality: Excellent. Lung bases: Unremarkable. Heart: No significant findings. ABDOMEN: Liver: Unremarkable. Gallbladder: Is contracted Biliary ducts: Unremarkable. Pancreas: Unremarkable. Spleen: Unremarkable. Adrenal Glands: Unremarkable. Kidneys and Ureters: Unremarkable. Stomach and Bowel: Stomach and small bowel within normal limits. Moderate stool within the left colon. Appendix not seen. No evidence of appendicitis. Moderate thickening of the rectum which demonstrates moderate surrounding fat stranding. Moderate to large amount of stool within the rectum. Peritoneum: Trace free fluid in the pelvis. No free air. Ventral Wall: No hernias. Abdominal Nodes: No retroperitoneal or mesenteric adenopathy by size criteria. Vessels: Aorta and inferior vena cava are normal in size. PELVIS: Pelvic Organs: Unremarkable. Bladder: Unremarkable. Pelvic Nodes: No enlarged lymph nodes. Miscellaneous: No hernias are seen. Bones: There is progressive, subacute on chronic moderate wedging of L2. IMPRESSION: 1. Fecal impaction within the rectum. 2. Proctitis. 3. Appendix not seen. No evidence of appendicitis. 4. L2 compression fracture as above. Dictated by: Marleen Vogel M.D. on 12/06/2021 at 13:24 Approved by: Marleen Vogel M.D. on 12/06/2021 at 13:27
--- NOTE | 2021-12-06 15:08 | PM.HP.1 ---
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 Patient states she has always been a little bit weak because of chemotherapy. But not this bad. She says her weakness is worse in. She has no appetite things do not taste very well. It hurts she did she has become more weak in the past few days. This morning she had 2 different falls. She normally walks with a walker. She says each time her fall was due to weakness. Not because of palpitations lightheadedness or shortness of breath. Says she has significant weakness and no energy. She has not had any fevers or chills. She is nauseated. She has not had any vomiting. Reviewed through patient's past medical social family history recent oncology notes and ER CT scans of abdomen and pelvis and head as well as her chest x-ray. Patient History Medical History Arthritis of carpometacarpal (CMC) joint of left thumb Cervical stenosis of spinal canal Facet arthropathy, cervical Foraminal stenosis of cervical region Impingement syndrome of left shoulder Myelomalacia of cervical cord Surgical History History of tonsillectomy Status post tubal ligation Family & Social History Social History: household members family Safety & Behavioral: Feels Safe in Current Yes Environment Been Physically Hurt or No Threatened By a Person Tobacco & Substance use: Smoking Status Former smoker alcohol intake current alcohol intake frequency holiday/special occasion Substance Use Type does not use Meds Home Medications and Allergies Home Medications Medication Instructions Recorded Confirmed Type MULTIVITAMIN 1 cap PO Q DAY ##0 09/20/11 12/06/21 History simvastatin 20 mg tablet 20 mg PO HS #90 tabs 11/03/20 12/06/21 Rx triamcinolone acetonide 0.1 % 1 applic topical BID #15 grams 04/15/21 12/06/21 Rx topical cream acetaminophen 325 mg tablet 650 mg PO Q6H PRN Pain (Scale 08/25/21 12/06/21 History (Tylenol) Score 1-3) cholecalciferol (vitamin D3) 25 25 mcg PO DAILY 08/25/21 12/06/21 History mcg (1,000 unit) capsule lisinopril 20 mg tablet 20 mg PO DAILY 08/25/21 12/06/21 History nicotine 14 mg/24 hr daily 1 patch transdermal DAILY 08/25/21 12/06/21 History transdermal patch ondansetron 4 mg disintegrating 4 mg PO Q8H 08/25/21 12/06/21 History tablet polyethylene glycol 3350 17 gram 17 g PO PRN PRN Constipation 08/25/21 12/06/21 History oral powder packet (Miralax) sennosides 8.6 mg tablet (Natural 17.2 mg PO BEDTIME PRN constipation 08/25/21 12/06/21 History Senna Laxative) vitamin B complex (B 1 tab PO DAILY 08/25/21 12/06/21 History Complex-Vitamin B12 tablet) hydrocodone 5 mg-acetaminophen 325 1 tab PO Q8H PRN pain #10 tabs 09/22/21 12/06/21 Rx mg tablet nitrofurantoin 100 mg PO Q12H 5 days #10 caps 12/03/21 12/06/21 Rx monohydrate/macrocrystals 100 mg capsule (Macrobid) folic acid 1 mg tablet 1 mg PO DAILY 12/06/21 12/06/21 History memantine 10 mg tablet 10 mg PO BID 12/06/21 12/06/21 History potassium chloride 20 mEq 20 meq PO DAILY 12/06/21 12/06/21 History tablet,extended release Allergies Allergy/AdvReac Type Severity Reaction Status Date / Time No Known Drug Allergies Allergy Verified 12/03/21 13:40 Exam Vital Signs (past 8 hours): - 12/06/21 10:24 12/06/21 10:15 12/06/21 10:15 Temperature 97.9 F Pulse Rate 77 80 Respiratory Rate 16 Blood Pressure 104/63 104/63 Pulse Oximetry 98 99 Oxygen Delivery Method Room Air 12/06/21 10:30 12/06/21 10:51 12/06/21 10:51 Temperature Pulse Rate 73 70 Respiratory Rate Blood Pressure 101/56 L Pulse Oximetry 98 99 Oxygen Delivery Method 12/06/21 11:00 12/06/21 11:11 12/06/21 11:12 Temperature Pulse Rate 71 72 71 Respiratory Rate Blood Pressure Pulse Oximetry 98 99 99 Oxygen Delivery Method Room Air 12/06/21 11:12 12/06/21 11:30 12/06/21 11:30 Temperature Pulse Rate 68 Respiratory Rate Blood Pressure 95/56 L 89/53 L Pulse Oximetry 99 Oxygen Delivery Method 12/06/21 11:53 12/06/21 12:00 12/06/21 12:09 Temperature Pulse Rate 72 Respiratory Rate Blood Pressure 105/59 L Pulse Oximetry 100 Oxygen Delivery Method 12/06/21 12:30 12/06/21 12:30 12/06/21 13:12 Temperature Pulse Rate 67 69 Respiratory Rate 24 44 H Blood Pressure 99/63 Pulse Oximetry 100 Oxygen Delivery Method 12/06/21 13:30 12/06/21 14:00 12/06/21 14:30 Temperature Pulse Rate 63 62 71 Respiratory Rate 31 H 16 28 H Blood Pressure Pulse Oximetry 96 93 Oxygen Delivery Method Room Air Oxygen Delivery Method Room Air Narrative Exam Narrative: Gen.: Alert a weak appearing 76-year-old female patient HEENT: Pupils equal round and reactive or mucosa is dry neck is supple Cardio: S1-S2 regular rate and rhythm no murmurs appreciated. Respiratory: Lungs are clear to auscultation no wheezes or crackles normal respiratory effort. Abdomen: Soft nontender no rebound or guarding no liver spleen enlargement no appreciable hernias Extremities: Warm dry perfused no edema. Neurologic: Grossly intact. Objective Labs Result Diagrams: 12/06/21 10:16 12/06/21 10:16 Labs: Laboratory Results - last 24 hr 12/06/21 12/06/21 12/06/21 10:16 10:16 10:16 WBC 6.1 RBC 2.67 L Hgb 9.7 L Hct 27.7 L MCV 103.4 H MCH 36.3 H MCHC 35.1 RDW 18.4 H Plt Count 291 Neut % (Auto) Not Reportable Lymph % (Auto) Not Reportable Wilkinson % (Auto) Not Reportable Eos % (Auto) Not Reportable Baso % (Auto) Not Reportable Lymph # (Auto) Not Reportable Wilkinson # (Auto) Not Reportable Baso # (Auto) Not Reportable Total Counted 100 Seg Neutrophils % 37.0 L Band Neutrophils % 17.0 H Lymphocytes % (Manual) 20.0 L Monocytes % (Manual) 26.0 H Neutrophils # (Manual) 3294 Platelet Estimate Adequate on smear RBC Morphology Norm PT 12.1 INR 1.1 APTT 29 Sodium 130 L Potassium 4.7 Chloride 102 Carbon Dioxide 21 L BUN 30 H Creatinine 1.30 H Estimated GFR 43 L BUN/Creatinine Ratio 23.1 H Glucose 110 Calcium 9.5 Magnesium 2.3 Total Bilirubin 0.3 AST 36 ALT 25 Alkaline Phosphatase 99 Total Protein 6.4 Albumin 3.4 L Globulin 3.0 Albumin/Globulin Ratio 1.1 Lipase 30 Assessment & Plan Assessment and plan (1) PRABHAKAR (acute kidney injury): Status: Acute (2) Acute hyponatremia: Status: Acute (3) Non-small cell lung cancer: Qualifiers: Laterality: unspecified laterality Qualified Code(s): C34.90 - Malignant neoplasm of unspecified part of unspecified bronchus or lung Status: Acute (4) Brain metastasis: Status: Acute (5) Constipation: Status: Acute Plan 76 Year old female with stage IV lung cancer admitted with weakness due to multiple medical problems. Acute kidney injury patient with a acute kidney injury due to dehydration and weakness. Patient will be hydrated with normal saline with dextrose. Will monitor closely electrolytes and fluids. I am assuming her kidney injury is due to a combination of dehydration and chemotherapy. Hopefully over the next few days her kidneys will improve. Hyponatremia patient with hyponatremia with sodium of 130. Patient normally has good sodium levels. Patient will be provided with normal saline to help improvement correct low sodium. Hypotension. Patient with hypotension and falls at home. Patient's blood pressure was quite low assuming due to dehydration. IV fluid resuscitation was provided to the patient. Stage IV metastatic lung cancer with metastatic disease to the brain. Patient is going through chemotherapy. Patient is no longer taking dexamethasone. Patient will need help and support at home with home health. Malutrition. Patient has a 10 lb weight loss not eating well. I will provided dietary consultation. I would imagine she has significant level of protein calorie malnutrition will see what dietary recommends. Hypertension. Patient has a history of hypertension her blood pressure medication has been held due to hypotension Smoking history multiple pack years. Patient was given a nicotine patch Constipation severe constipation. Patient will be given MiraLax and Senokot. We may have to do a suppository. Disposition and plan admitted as inpatient. Patient has acute kidney injury hyponatremia and significant weakness due to her lung cancer. Will work on IV hydration dextrose fluids anti emetics and Lovenox for DVT prophylaxis. Time Spent With Patient Critical Care time: I spent a total of [] minutes of critical care time on this patient's care today; this time is exclusive of procedural time.
[2021-12-06 15:16] LABS: COVID19 -Nasal RAPID Negative (Negative)
[2021-12-06] MEDS: DEXTROSE 5%-0.9% NS 1,000 ML 125 ML IV (16:32)
--- NOTE | 2021-12-06 17:52 | PC.NURSE ---
Pt to room 204 via gurney from ER. Pt transferred to bed via slider board. Pt incontinent of stool. Brief changed and barrier cream applied to reddened but intact bottom. Hemmorhoids noted externally. Off-loaded Pt toward the right side with pillows under bottom and heels floated. Daughter assisted with Pt admit-Pt and daughter live together and Daughter Gretchen is POA. Oriented Pt to bed controls, tv controls, call light and room. Bed alarm on for safety secondary to 3 falls in the past 12 hours prior to admit. Reminded Pt to call for assistance as needed and to not get up without assistance.
[2021-12-06] MEDS: HYDROCODONE/ACET 5/325 TABLET 1 TAB PO (18:00)
--- NOTE | 2021-12-06 18:06 | PC.NURSE ---
Pt has several external hemorrhoids that are very painful for the pt to sit/lay on. Pt is laying on her side, using pillows to help keep pressure off the buttock. Applied barrier cream to buttock.
[2021-12-06] MEDS: ACETAMINOPHEN 325 MG TABLET 650 MG PO (21:46)
[2021-12-06] MEDS: MORPHINE 4 MG/ML INJ IV (23:01)
[2021-12-06] MEDS: NITROFURANTOIN ER 100 MG CAPSULE PO (23:01)
[2021-12-07] VITALS (12 sets, daily range): BP systolic 92–116; BP diastolic 55–68; PULSE 55–67; RESP 16–20; TEMP 36.4–36.9; O2SAT 97–99
[2021-12-07] MEDS: HYDROCODONE/ACET 5/325 TABLET 1 TAB PO ×2 (06:25→22:18)
[2021-12-07 07:22] LABS: Hematocrit 24.4 % (36-46); Hemoglobin 8.5 g/dL (12.0-16.0); Mean Corpuscular Hemoglobin 36.4 PG (26-34); Platelet Count 276 X10^3/uL (150-400); Red Blood Cell Count 2.35 X10^6/uL (4.0-5.2); White Blood Cell Count 8.5 X10^3/uL (4.5-11.0)
[2021-12-07 07:24] LABS: Add Manual Diff / Slide Review YES
[2021-12-07 07:35] LABS: Alanine Aminotransferase 20 IU/L (<35); Albumin 2.7 g/dL (3.5-5.0); Alkaline Phosphatase 81 U/L (38-126); Aspartate Aminotransferase 26 IU/L (14-36); Bilirubin Total 0.2 mg/dL (0.2-1.3); Blood Urea Nitrogen 17 mg/dL (7-17); Calcium 8.1 mg/dL (8.4-10.2); Carbon Dioxide 22 mmol/L (22-32); Chloride 108 mmol/L (98-107); Estimated Glomerular Filt Rate > 60 mL/min (>60); Globulin 2.8 g/dL (1.7-4.1); Glucose 98 mg/dL (80-110); HEMOLYSIS < 15 (0-50); Potassium 3.3 mmol/L (3.4-5.1); Sodium 133 mmol/L (137-145); Total Protein 5.5 g/dL (6.3-8.2)
[2021-12-07 07:45] LABS: Neutrophils Absolute Manual 4930 /uL (3000-5900); Total Cells Counted 100
[2021-12-07 07:47] LABS: Anisocytosis 1+; Macrocytosis 1+
--- NOTE | 2021-12-07 07:58 | PM.PN.1 ---
Subjective Subjective Date Patient Seen: 12/07/21 Time Patient Seen: 07:58 Interval history: Patient seen and evaluated last evening. Had a difficult night last night due to pain. Patient required some IV morphine to help get her pain under control. Currently on Vicodin Percocet. Introduce gabapentin twice a day for more even pain control. Still not much appetite. Working and having a nutritional consultation this morning. Vital signs are stable less hypotensive. Exam Vital Signs (past 8 hours): - 12/07/21 06:00 Temperature 97.7 F Pulse Rate 64 Respiratory Rate 18 Blood Pressure 115/64 Pulse Oximetry 99 Oxygen Flow Rate 0 Oxygen Delivery Method Room Air Oxygen Flow Rate 0 Narrative Exam Narrative: Gen.: Alert with some forgetfulness HEENT: Pupils equal round and reactive or mucosa is dry Cardio: S1-S2 regular rate and rhythm Respiratory: Normal respiratory effort no wheezes or crackles Abdomen: Soft nontender no rebound or guarding Extremities: Warm dry perfused no edema Objective Labs Result Diagrams: 12/07/21 06:00 12/07/21 06:00 Labs: Laboratory Results - last 24 hr 12/06/21 12/06/21 12/06/21 10:16 10:16 10:16 WBC 6.1 RBC 2.67 L Hgb 9.7 L Hct 27.7 L MCV 103.4 H MCH 36.3 H MCHC 35.1 RDW 18.4 H Plt Count 291 Neut % (Auto) Not Reportable Lymph % (Auto) Not Reportable Woodruff % (Auto) Not Reportable Eos % (Auto) Not Reportable Baso % (Auto) Not Reportable Lymph # (Auto) Not Reportable Woodruff # (Auto) Not Reportable Baso # (Auto) Not Reportable Total Counted 100 Seg Neutrophils % 37.0 L Band Neutrophils % 17.0 H Lymphocytes % (Manual) 20.0 L Monocytes % (Manual) 26.0 H Neutrophils # (Manual) 3294 Platelet Estimate Adequate on smear RBC Morphology Norm Anisocytosis Macrocytosis PT 12.1 INR 1.1 APTT 29 Sodium 130 L Potassium 4.7 Chloride 102 Carbon Dioxide 21 L BUN 30 H Creatinine 1.30 H Estimated GFR 43 L BUN/Creatinine Ratio 23.1 H Glucose 110 Calcium 9.5 Magnesium 2.3 Total Bilirubin 0.3 AST 36 ALT 25 Alkaline Phosphatase 99 Total Protein 6.4 Albumin 3.4 L Globulin 3.0 Albumin/Globulin Ratio 1.1 Lipase 30 SARS-CoV-2 (PCR) 12/06/21 12/07/21 12/07/21 15:14 06:00 06:00 WBC 8.5 RBC 2.35 L Hgb 8.5 L Hct 24.4 L MCV 104.0 H MCH 36.4 H MCHC 35.0 RDW 19.0 H Plt Count 276 Neut % (Auto) Not Reportable Lymph % (Auto) Not Reportable Woodruff % (Auto) Not Reportable Eos % (Auto) Not Reportable Baso % (Auto) Not Reportable Lymph # (Auto) Not Reportable Woodruff # (Auto) Not Reportable Baso # (Auto) Not Reportable Total Counted 100 Seg Neutrophils % 40.0 Band Neutrophils % 18.0 H Lymphocytes % (Manual) 22.0 L Monocytes % (Manual) 20.0 H Neutrophils # (Manual) 4930 Platelet Estimate RBC Morphology See below Anisocytosis 1+ H Macrocytosis 1+ H PT INR APTT Sodium 133 L Potassium 3.3 L D Chloride 108 H Carbon Dioxide 22 BUN 17 Creatinine 0.81 Estimated GFR > 60 BUN/Creatinine Ratio 21.0 Glucose 98 Calcium 8.1 L Magnesium Total Bilirubin 0.2 AST 26 ALT 20 Alkaline Phosphatase 81 Total Protein 5.5 L Albumin 2.7 L Globulin 2.8 Albumin/Globulin Ratio 1.0 Lipase SARS-CoV-2 (PCR) Negative [facility] Medical History Arthritis of carpometacarpal (CMC) joint of left thumb Cervical stenosis of spinal canal Facet arthropathy, cervical Foraminal stenosis of cervical region Impingement syndrome of left shoulder Myelomalacia of cervical cord Surgical History History of tonsillectomy Status post tubal ligation Social History marital status: household members: family Smoking Status: Former smoker alcohol intake: current substance use type: does not use Assessment & Plan Assessment & Plan narrative: Acute kidney injury patient with a acute kidney injury due to dehydration and weakness. Patient has responded nicely to IV fluids. Will go ahead and decrease and stop these today. She will need some potassium replacement. Hyponatremia patient with hyponatremia with sodium of 130. Patient's sodium has been almost corrected. As she is now at 133. Will do some free water restriction today to see if her sodium can improved. She may have ongoing sodium issues due to her chemotherapy and lung cancer. Hypotension. Patient with hypotension and falls at home. Patient with hypotension and falls. Hypotension is improved. Blood pressure medication still on hold. Stage IV metastatic lung cancer with metastatic disease to the brain. Patient is going through chemotherapy. Patient is off dexamethasone. Patient is blood counts are quite low this morning. May need a blood transfusion. Cancer related pain. Patient requiring IV pain medication last evening. Start gabapentin 300 mg twice a day. Anemia presumed due to chemotherapy and lung cancer. She her hemoglobin is 8.4 today. Will transfuse her 2 units. Severe Malutrition. Patient has a 10 lb weight loss not eating well. I will provided dietary consultation. I would imagine she has significant level of protein calorie malnutrition will see what dietary recommends. Hypertension. Patient has a history of hypertension her blood pressure medication has been held due to hypotension Smoking history multiple pack years. Patient was given a nicotine patch Constipation severe constipation. Patient will be given MiraLax and Senokot. Disposition and plan admitted as inpatient. Blood for transfusion today. Pain control today. Continue with potassium replacement and kidney monitoring. Potential discharge home with home health tomorrow. Time Spent With Patient Critical Care time: I spent a total of [] minutes of critical care time on this patient's care today; this time is exclusive of procedural time. Quality VTE Deep Vein Thrombosis/Pulmonary Embolism Present on Admission: No
[2021-12-07] MEDS: NITROFURANTOIN ER 100 MG CAPSULE PO ×2 (09:08→21:17)
[2021-12-07] MEDS: ENOXAPARIN 30 MG/0.3 ML SYRINGE SUBCUT (09:08)
[2021-12-07] MEDS: polyethylene glycoL 3350 17 GM POWD.PACK PO (09:08)
[2021-12-07] MEDS: NICOTINE 14 PATCH 14 MG TOP (09:09)
[2021-12-07] MEDS: ACETAMINOPHEN 325 MG TABLET 650 MG PO ×2 (09:09→17:05)
[2021-12-07] MEDS: GABAPENTIN 300 MG CAPSULE PO ×2 (09:09→21:17)
[2021-12-07] MEDS: DEXTROSE 5%-0.9% NS 1,000 ML 125 ML IV (09:21)
[2021-12-07] MEDS: PHENYLEPH/MINERAL OIL/PETROLAT 57 GM OINT 1 APPLIC PR ×2 (10:07→16:28)
[2021-12-07] MEDS: POTASSIUM CHLORIDE 20 MEQ TAB 40 MEQ PO (10:08)
[2021-12-07] MEDS: BISACODYL 5 MG TABLET 10 MG PO (10:08)
[2021-12-07] MEDS: MEMANTINE HCL 5 MG TABLET 10 MG PO ×2 (12:22→21:17)
--- NOTE | 2021-12-07 14:26 | DIET.CONS ---
Dietary Consultation Note Admission Date: 12/06/2021 14:39 Assessment: 76y F admitted with multiple falls over 12h and fecal impaction with current metastatic lung cancer c mets to brain s/p craniotomy referred to nutrition for malnutrition (MNA 4). RD met with pt and daughter, bryan at bedside. Pt reports severely reduced appetite since starting chemotherapy. Pt reports neighbors BBQing smells like garbage, sweet foods taste too sweet. Pt consuming at best 200kcals/d per report of daughter. Pts daughter trying variety of foods to spur intake, trying to feed vegetables to support fiber intake for chronic constipation. Pt has internal and external hemorrhoids. Pt not on bowel regimen at home. Pts weight loss over 2mo is severe along with her BMI for age. Pt has chemotherapy appointment tomorrow and hopes to d/c in time for it. Pt and daughter desire nutrition tips to increase intake. Nutrition intervention to focus on small frequent intake of high kcal high protein options. Physician to consider bowel regimen as well as appetite stimulant such as dronabinol to stimulate appetite. Ht: 165.1 cm Wt: 47 kg (-20.3% in 2mo, severe) BMI: 17.2 (severe for age) UBW: 60kg Last BM: 12/07/21 (12/07/21 09:30) MNA: 4 Elias Score: 16 Diet: 12/06/21 Dinner General (Regular) Diet Diet Modifications: Nutrition Percent Meal Consumed Only a few bites of food 12/06/21 19:27 Labs: RBC 2.35 X10^6/uL (4.0-5.2) L 12/07/21 06:00 Hgb 8.5 g/dL (12.0-16.0) L 12/07/21 06:00 Hct 24.4 % (36-46) L 12/07/21 06:00 Creatinine 0.81 mg/dL (0.52-1.04) 12/07/21 06:00 Nutrition Diagnosis: Severe Acute Protein Calorie Malnutrition r/t severely depressed appetite, cancer-related catabolism aeb 20% unintentional weight loss in 2mo (severe), BMI 17.2 (severe for age), pt consuming ~200kcals/d, pt with metastatic lung cancer to brain s/p craniotomy and brain radiation. Interventions: 1. Recc physician consider bowel regimen to support chronic constipation and reduce pressure to include high fiber foods in diet (Miralax, Metamucil, stool softener) and appetite stimulant such as dronabinol to spur increased desire to eat. 2. Educated pt and daughter on strategies for caloric and protein dense foods including use of high strength ONS, full fat dairy, nut butters, soft eggs, collagen peptides in water and broth. Spent time problem solving and meal planning with the pair. 3. While hospitalized, kitchen to send Ensure clear tid, bone broth with collagen, and protein milkshakes as tolerated to support nutrition status. EER: 50-60g PRO (1.1-1.5g/kg per PCM), 1400-1650kcals (30-35kcal/kg per PCM) Monitoring/Evaluations: POs, ONS tolerance and preference Electronically Signed by: Jagruti Mejia 12/07/21 14:26 Clinical Dietitian [address] [id number]
--- NOTE | 2021-12-07 15:12 | CM.DANOTE ---
Patient is a 76 yo female who was admitted on 12/06/21 for Weakness. Pt has MCR and PRE DIM for insurance and her PCP is Dr. Alberto Hawley. EMR was reviewed. Per MD, pt with current stage IV lung CA with mets to the brain and receiving chemo and admitted for PRABHAKAR and hyponatremia. Pt to have 2 units blood and fluids today and plan of d/c to home with HH. Per RN, initiated brief goals of care discussion. SW met bedside with pt and Dtr/ESMER Godinez and explained role and they confirm that they live together in [place] and Dtr works but currently off with FMLA and assisting pt with getting to appointments and managing meds. Pt still alert and oriented but very fatigued today. Pt denies any hx of HH or SNF and recently retired from working at the hospital about 2 years ago. Dtr typically works maritime engineer and states pt did very well with her brain radiation and surgery and first round of chemo treatments and pt scheduled for 3 more chemo treatments that are about 3 weeks apart with one appointment being tomorrow 12/08 at 1130 at [facility]. SW provided the Senior Resource Guidebook and discussed the potential for higher care needs at some point as pt currently wanting to continue with full treatment at this time and SW showed the PP CG agency list and Dtr agreeable with at least calling to gather information on cost, etc. SW also discussed HH recommendation and Dtr confirms that up until about a week ago pt had been attending outpt PT 1-2 times a week but now Dtr confirms HH needed at d/c and SW provided Choice List and no preference and therefore [facility] referral made and updated Reji on pt situation. F2F completed but not printed yet and HH orders will need to be faxed at discharge. Plan: SW to follow closely for plan of d/c tomorrow morning prior to scheduled chemo treatment in [facility] at 1130 and new [facility] to follow. RHETT Foster Discharge Planning/Care Management CM Discharge Assessment Start: 12/07/21 15:10 Freq: Status: Active Protocol: Document 12/07/21 15:10 BF (Rec: 12/07/21 15:12 BF [id number]) Discharge Planning Assessment Assigned On Air Host RHETT Jain/Assigned Designee Name Carmina Godinez Contact Information [phone] Advance Directives? No Advance Directives on File No History Provided By Patient,Family Member,Medical Record Has Patient been admitted in last 30 No days? Prior Living Arrangements Apartment/Condo Household Members family Comment Lives with Dtr Gretchen Type of transporation used prior to Relies on Others admit Independent with ADL's Yes Is patient alert and oriented? Yes Needs Assistance With Managing Medications,Home Chores / Shopping Caregiver for Another No Community Services used prior to Physical Therapy admission: Comment Pt had been established with outpt PT but recently too weak to attend DME Already Rented / Owned FWW / Walker,Cane Patient/Family Preference Home with Home Health Barriers to Discharge No Discharge Plan Home with Home Health Community Services Physical Therapy,Home Health Nurse Transportation Arrangement Dtr plans to provide transport at d/c Referrals Initiated Home Health Additional Comment [facility] If patient plan is home with home health Yes : Has signed face to face form been completed? Medicare Choice List Provided Yes SNF/HH Preference [facility] referral made Whiteboard Updated in Patient Room with Yes name and ext. # of On Air Host Review Status In Process Please Provide Date Initial DC 12/07/21 Assessment Was Performed Next Review Type Continued Stay Review
--- NOTE | 2021-12-07 16:52 | PC.NURSE ---
Transition of Care This RN assumed care of patient at 1600. No report received from primary RN. Report received from tee.
[2021-12-07] MEDS: OXYCODONE IR 5 MG TABLET PO (17:05)
[2021-12-07] MEDS: FUROSEMIDE 40 MG/4 ML VIAL IV (18:00)
[2021-12-07] MEDS: ONDANSETRON 4 MG ODT PO (18:34)
[2021-12-08 01:07] VITALS: BP 98/55; PULSE 60; RESP 18; TEMP 36.4; O2SAT 96
[2021-12-08 05:15] VITALS: BP 116/67; PULSE 59; RESP 18; TEMP 36.6; O2SAT 97
[2021-12-08 08:06] LABS: Hematocrit 32.8 % (36-46); Hemoglobin 11.3 g/dL (12.0-16.0); Mean Corpuscular HGB Conc 34.4 % (30-36); Mean Corpuscular Hemoglobin 33.3 PG (26-34); Mean Corpuscular Volume 96.7 fL (80-100); Platelet Count 272 X10^3/uL (150-400); Red Cell Distribution Width 20.2 % (11.6-14.8); White Blood Cell Count 9.8 X10^3/uL (4.5-11.0)
[2021-12-08 08:07] LABS: Add Manual Diff / Slide Review YES
[2021-12-08 08:15] VITALS: BP 128/70; PULSE 52; RESP 14; TEMP 36.5; O2SAT 95
[2021-12-08 08:21] LABS: Alanine Aminotransferase 17 IU/L (<35); Albumin 2.4 g/dL (3.5-5.0); Albumin Globulin Ratio 0.9 (1.0-2.8); Alkaline Phosphatase 70 U/L (38-126); Aspartate Aminotransferase 23 IU/L (14-36); BUN Creatinine Ratio 14.7 (6-22); Bilirubin Total 0.3 mg/dL (0.2-1.3); Blood Urea Nitrogen 10 mg/dL (7-17); Calcium 7.9 mg/dL (8.4-10.2); Carbon Dioxide 20 mmol/L (22-32); Chloride 108 mmol/L (98-107); Estimated Glomerular Filt Rate > 60 mL/min (>60); Globulin 2.8 g/dL (1.7-4.1); Glucose 91 mg/dL (80-110); HEMOLYSIS 22 (0-50); Potassium 3.3 mmol/L (3.4-5.1); Sodium 134 mmol/L (137-145); Total Protein 5.2 g/dL (6.3-8.2)
[2021-12-08 08:41] LABS: Neutrophils Absolute Manual 6174 /uL (3000-5900); Nucleated Red Blood Cells 1 #/Diff; Total Cells Counted 100
[2021-12-08 08:42] LABS: Anisocytosis 2+; Hypochromasia 1+
[2021-12-08] MEDS: ACETAMINOPHEN 325 MG TABLET 650 MG PO ×2 (08:45→20:50)
[2021-12-08] MEDS: NITROFURANTOIN ER 100 MG CAPSULE PO ×2 (08:45→20:50)
[2021-12-08] MEDS: GABAPENTIN 300 MG CAPSULE PO ×2 (08:45→20:50)
[2021-12-08] MEDS: MEMANTINE HCL 5 MG TABLET 10 MG PO ×2 (08:45→20:50)
[2021-12-08] MEDS: ENOXAPARIN 30 MG/0.3 ML SYRINGE SUBCUT (08:46)
[2021-12-08] MEDS: NICOTINE 14 PATCH 14 MG TOP (08:46)
[2021-12-08] MEDS: POTASSIUM CHLORIDE 20 MEQ TAB 40 MEQ PO (09:44)
[2021-12-08] MEDS: ONDANSETRON 4 MG ODT PO (11:26)
[2021-12-08] MEDS: HYDROCODONE/ACET 5/325 TABLET 1 TAB PO (12:55)
[2021-12-08 13:41] VITALS: BP 133/74; PULSE 61; RESP 16; TEMP 36.8; O2SAT 99
--- NOTE | 2021-12-08 14:43 | PT.IIE ---
Current Diagnoses Malignant neoplasm of unspecified part of unspecified bronchus or lung (12/06/21) Secondary malignant neoplasm of brain (12/06/21) Hypo-osmolality and hyponatremia (12/06/21) Constipation, unspecified (12/06/21) Acute kidney failure, unspecified (12/06/21) Surgical History (Last Reviewed 12/06/21 @ 15:25 by Alberto Hawley MD) History of tonsillectomy Status post tubal ligation Medical History (Last Reviewed 12/06/21 @ 15:25 by Alberto Hawley MD) Arthritis of carpometacarpal (CMC) joint of left thumb Cervical stenosis of spinal canal Facet arthropathy, cervical Foraminal stenosis of cervical region Impingement syndrome of left shoulder Myelomalacia of cervical cord Physical Therapy Inpatient Evaluation/Re-Eval M1 PT/OT-IP Prior Functional Status Start: 12/08/21 14:49 Freq: NEEDED Status: Active Protocol: Document 12/08/21 14:43 DLM (Rec: 12/08/21 15:12 DLM [id number]) Medical Review Prior Functional Status Medical History Reviewed Yes Diet/Fluid Consistency Regular Communication WFL Mobility and Gait ambulating with 4WW at home and been able to get to out-pt appointments Activities of Daily Living and IADL's Daughter has been assisting her as needed Prior Functional Level (Other details) was attending out-pt PT until became too weak Social History Household Members family Living Arrangements House Number of Floors (Floors) One Floor Number of Stairs To Enter/Railing? 2 steps to enter with rails Home Environment Standard Height Toilet Home Equipment Four Wheel Walker,Manual Wheelchair,Bedside Commode Employment Status Retired Additional Social History Comment bedside commode is over the toilet at this time, friend just picked up a transport wheelchair from [employer] M2 PT-IP Current Condition Start: 12/08/21 14:49 Freq: NEEDED Status: Active Protocol: Document 12/08/21 14:43 DLM (Rec: 12/08/21 15:12 DLM [id number]) Physical Therapy Current Condition Current Condition Evaluation Date 12/08/21 Treatment Diagnosis fall, weakness, difficulty walking Onset Date 12/06/21 M3 PT-IP Subjective Start: 12/08/21 14:49 Freq: NEEDED Status: Active Protocol: Document 12/08/21 14:43 DLM (Rec: 12/08/21 15:12 DL [id number]) Subjective Physical Therapy Visit Type Type Initial Evaluation Visit Start Time 14:10 Visit Stop Time 14:43 Total Visit Minutes 33 Number of CARPET WEAVER Visits 0 Physical Therapy Visit Comments Patient Comments she reports feeling very tired and weak, she wants to continue chemo treatments Patient Goals Discharge home with her Daughter M4 PT-IP Mobility and Gait Start: 12/08/21 14:49 Freq: NEEDED Status: Active Protocol: Document 12/08/21 14:43 DLM (Rec: 12/08/21 15:12 DL [id number]) PT-Bed Mobility Assessment Rolling Type of Rolling Bilateral Level of Assist Independent Supine to Sit Supine to Sit Standby Assistance,Bedrails Sit to Supine Sit to Supine Minimal Assistance,Bedrails Scooting Scooting to Edge of Bed Standby Assistance PT-Transfer Assessment Sit to and From Stand Sit to and from Stand Contact Guard Assistance, Minimal Assistance,Use of Upper Extremities Equipment Transfer Assistive Device Gait Belt,Front Wheeled Walker Transfers Transfer Destination Bed Transfer Technique Stand Step Pivot Transfer Ability Level of Assist Contact Guard Assistance, Minimal Assistance,Use of Upper Extremities Gait Assessment Gait Gait Assistance Required: Contact Guard Assist,Minimum Assistance Distance (Feet) 20 Assistive Devices Assistive Device Gait Belt,Front Wheeled Walker Gait Deviations General Gait Pattern Flexed Trunk,Step-to Gait,Wide Based Gait Factors Limiting Gait Function Factors Limiting Gait Function Decreased Activity Tolerance, Decreased Strength,Poor Balance Comments Gait Comments tremulous, knees often flexed, flexed trunk over FWW, she intermittently stops during gait to straighten up and manage her fatigue, needs assist to manage the FWW with pt reporting it is harder to advance than her 4WW, significant fatigue with gait, needs cueing to stay close to the FWW, pace of gait is very slow, left hip weakness noted with closed chain weight bearing during gait PT-Balance Assessment Sitting Balance and Reactions Static Sitting Balance Ability Good Dynamic Sitting Balance Ability Good Standing Balance and Reactions Static Standing Balance Ability Fair Dynamic Standing Balance Ability Fair Device Used FWW M5 PT-IP Objective Assessments Start: 12/08/21 14:49 Freq: NEEDED Status: Active Protocol: Document 12/08/21 14:43 DLM (Rec: 12/08/21 15:12 DL [id number]) Orientation Orientation/Cognition Level of Alertness Alert Orientation Name,Age,Birthday,Month,Date, Year,Day of Week,Place, Situation Language Function Ability No Deficits Noted Safety Awareness Understands Safety Issues Memory Description No Deficits Noted Comments she defers many questions to her DaughterGretchen Gross Range of Motion Upper Extremity ROM Assessment Within Functional Limits Lower Extremity ROM Assessment Within Functional Limits Strength Upper Extremity Strength Assessment Within Functional Limits Lower Extremity Strength Assessment Left Impaired Hip flexion 2+/5 Knee 4/5 Ankle DF 4/5 Coordination Assessment Gross Coordination Gross Coordination WNL Assessment Coordination Comments mild tremors when up moving but none noted at rest Sensation Assessment Sensation Gross Sensation WNL Comments Sensation Comments no changes reported Muscle Tone Muscle Tone WNL Yes M6 PT-IP Treatment Start: 12/08/21 14:49 Freq: NEEDED Status: Active Protocol: Document 12/08/21 14:43 DLM (Rec: 12/08/21 15:12 DL [id number]) Physical Therapy Treatment Education Education Provided Safety Other Treatments Other Treatment Performed Her Daughter, Gretchen, is present today and participated in therapy session. Answered questions and discussed home equipment. I anticipate the patient will need to use the bedside commode and wheelchair more often than before this hospitalization. She will be able to ambulate short household distances but not very often each day. She will need the wheelchair to go to medical appointments. M7 PT-IP Assessment and Plan Start: 12/08/21 14:49 Freq: NEEDED Status: Active Protocol: Document 12/08/21 14:43 DLM (Rec: 12/08/21 15:12 DL [id number]) PT Summary Assessment and Plan Potential Rehabilitation Potential Fair Status of Condition at Evaluation Evolving Summary Impairments Strength,Balance,Bed Mobility, Transfers,Gait,Activity Tolerance Assessment Summary Areli is alert and resting in bed. She continue to feel weak and fatigued. She was able to ambulate a short distance in the room with one person assist. She has significant fatigue with light activity. Her Daughter is present and very supportive. Areli has the assist she needs to safely discharge home which is 24/7 assist from family. They appear to have the equipment she needs for home. Goals Bed Mobility Goal Standby Assistance Transfer Goal Standby Assistance,Front Wheeled Walker Gait Goal Standby Assistance,Front Wheel Walker Gait Distance 50 feet Days to Meet Goals 3 Frequency of Treatment Frequency Of Treatment Once a Day Treatment Plan Physical Therapy Treatment Plan Bed Mobility Training,Transfer Training,Gait Training, Therapeutic Exercise,Balance Retraining,Discharge Planning, Neuromuscular Re-ed Precautions Other Precautions fall risk Recommendations To Nursing Amount of Assist Needed 1 Person Assist Discharge Recommendations PT Discharge Recommendations Home with 01/11 Assist Available,Home Health Transportation Needs at Discharge Private Vehicle
--- NOTE | 2021-12-08 16:01 | CM.DPC ---
DCP Cont: Patient will be staying another day, confirmed this with Dr. Hawley, who will be trying steroids for patient. Daughter, Gretchen, will be caring for her mother with [facility]. Gretchen, did wish to speak to this [place] Interior Wall Assembler about hospice,should her mother continue to decline. Went over hospice services with daughter in another room, since patient is sleeping. Gave her the brochure, and explained hospice services. She is hoping that her doctor can discuss this with her tomorrow. At this time, confirmed plan is home with [facility]. P: DCP to continue to follow. Patient most likely will discharge home tomorrow with [facility], hospice information given to daughter. Krys Yi RN/Tractor Mechanic Helper
--- NOTE | 2021-12-08 16:31 | PM.PN.1 ---
Subjective Subjective Date Patient Seen: 12/08/21 Time Patient Seen: 16:32 Interval history: Patient seen and evaluated this morning and this afternoon discussed care with patient care team as well as patient's daughter. Patient doing well. He comfortably in bed still little bit of pain and very weak. Received blood transfusion yesterday and normal saline. Patient still not eating very well appreciate dietary recommendations. Discussed care plan and goals of care with the patient's daughter. Discussed home with home health home with hospice support as well as continued day palliative chemotherapy. Patient's daughter voices and agrees that hospice consultation would be beneficial and will work on this as an outpatient. Still considering chemotherapy as part of her care treatment plan at this time. Exam Vital Signs (past 8 hours): - 12/08/21 13:41 Temperature 98.3 F Pulse Rate 61 Respiratory Rate 16 Blood Pressure 133/74 Pulse Oximetry 99 Oxygen Flow Rate 0 Oxygen Delivery Method Room Air Oxygen Flow Rate 0 Narrative Exam Narrative: General: She is alert arousable resting comfortably in bed HEENT pupils equal round and reactive or mucosa is moist Cardio: S1-S2 regular rate and rhythm Respiratory normal respiratory effort Abdomen soft nontender Extremities: Full range of motion no edema Objective Labs Result Diagrams: 12/08/21 06:30 12/08/21 06:30 Labs: Laboratory Results - last 24 hr 12/07/21 12/08/21 12/08/21 11:55 06:30 06:30 WBC 9.8 RBC 3.40 L Hgb 11.3 L Hct 32.8 L MCV 96.7 D MCH 33.3 MCHC 34.4 RDW 20.2 H Plt Count 272 Neut % (Auto) Not Reportable Lymph % (Auto) Not Reportable Johnson % (Auto) Not Reportable Eos % (Auto) Not Reportable Baso % (Auto) Not Reportable Lymph # (Auto) Not Reportable Johnson # (Auto) Not Reportable Baso # (Auto) Not Reportable Total Counted 100 Seg Neutrophils % 63.0 D Lymphocytes % (Manual) 21.0 L Atypical Lymphs % 1.0 H Monocytes % (Manual) 14.0 H Myelocytes % 1.0 H Neutrophils # (Manual) 6174 H Nucleated RBCs 1 H RBC Morphology See below Hypochromasia 1+ H Anisocytosis 2+ H Sodium 134 L Potassium 3.3 L Chloride 108 H Carbon Dioxide 20 L BUN 10 Creatinine 0.68 Estimated GFR > 60 BUN/Creatinine Ratio 14.7 Glucose 91 Calcium 7.9 L Total Bilirubin 0.3 AST 23 ALT 17 Alkaline Phosphatase 70 Total Protein 5.2 L Albumin 2.4 L Globulin 2.8 Albumin/Globulin Ratio 0.9 L Blood Type A Positive Antibody Screen Negative Crossmatch See Detail [facility] Medical History Arthritis of carpometacarpal (CMC) joint of left thumb Cervical stenosis of spinal canal Facet arthropathy, cervical Foraminal stenosis of cervical region Impingement syndrome of left shoulder Myelomalacia of cervical cord Surgical History History of tonsillectomy Status post tubal ligation Social History marital status: household members: family Smoking Status: Former smoker alcohol intake: current substance use type: does not use Assessment & Plan Assessment and plan (1) PRABHAKAR (acute kidney injury): Status: Acute (2) Acute hyponatremia: Status: Acute Plan Acute kidney injury patient with a acute kidney injury due to dehydration and weakness. Patient is kidney injury has been resolved. IV fluids. Continue with electrolyte replacement Hyponatremia patient with hyponatremia with sodium of 130.? Patient's sodium has been almost corrected.? Stop normal saline today Hypotension.? 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 Goals of care discussion happened with patient and patient's daughter today. Anticipate still chemotherapy. Hospice consultation will be provided the patient's daughter and patient discussed long-term care plans. If chemotherapy continues to be an option for this patient due to her end-stage lung cancer. Cancer related pain.? Patient requiring IV pain medication last evening.? Start gabapentin 300 mg twice a day. Anemia presumed due to chemotherapy and lung cancer.? 2 units packed red blood cells yesterday hemoglobin hematocrit stable Severe Malutrition.? Patient has a 10 lb weight loss not eating well.? I will provided dietary consultation.? I would imagine she has significant level of protein calorie malnutrition will see what dietary recommends. Hypertension.? Pa blood pressure on hold Smoking history multiple pack years.? Patient was given a nicotine patch Constipation severe constipation.? Patient will be given MiraLax and Senokot. Disposition and plan admitted as inpatient.? Discharge home with home health. Time Spent With Patient Critical Care time: I spent a total of [] minutes of critical care time on this patient's care today; this time is exclusive of procedural time. Quality VTE Deep Vein Thrombosis/Pulmonary Embolism Present on Admission: No
[2021-12-08] MEDS: POTASSIUM CHLORIDE 20 MEQ/15 ML UDC PO (16:51)
[2021-12-08] MEDS: dexAMETHasone 4 MG TABLET PO (16:51)
[2021-12-08] MEDS: ONDANSETRON 4 MG/2 ML INJ IV (16:52)
[2021-12-08 18:00] VITALS: BP 112/70; PULSE 61; RESP 16; TEMP 37.1; O2SAT 96
[2021-12-08 20:05] VITALS: BP 133/82; PULSE 66; RESP 18; TEMP 36.7; O2SAT 96
[2021-12-09 01:01] VITALS: BP 133/79; PULSE 60; RESP 18; TEMP 36.6; O2SAT 97
[2021-12-09 04:57] VITALS: BP 116/67; PULSE 59; RESP 18; TEMP 36.4; O2SAT 95
--- NOTE | 2021-12-09 07:46 | P.DS_ITS ---
History of Present Illness History of Present Illness Chief complaint: falls/weakness Narrative: 76-year-old female with stage IV lung cancer with metastatic disease to the brain hypertension hyperlipidemia osteoarthritis presents to the hospital with increasing weakness. Patient states she has always been a little bit weak because of chemotherapy. But not this bad. She says her weakness is worse in. She has no appetite things do not taste very well. It hurts she did she has become more weak in the past few days. This morning she had 2 different falls. She normally walks with a walker. She says each time her fall was due to weakness. Not because of palpitations lightheadedness or shortness of breath. Says she has significant weakness and no energy. She has not had any fevers or chills. She is nauseated. She has not had any vomiting. Reviewed through patient's past medical social family history recent oncology notes and ER CT scans of abdomen and pelvis and head as well as her chest x-ray. Discharge Providers Provider Date of admission: 12/06/21 14:39 Discharge Date: 12/09/21 Primary care physician: Alberto Hawley MD Consults: 12/06/21 14:01 Consult to [facility] [place] - Material Scheduler Stat Comment: VALVE GRINDER Consult needed for:: [facility] Need End of Life/Goal Care Dis 12/06/21 17:25 Consult to Dietitian, Adult Routine Comment: 10# weight loss since august-no appetite Reason For Exam: malnutrition secondary to CA treatment Consult to Pastoral Services Routine Comment: pt request Consult to Material Scheduler Routine Comment: needs home health 12/08/21 09:54 Consult to Physical Therapy Evaluate & Treat Comment: Physician Instructions: Evaluate and Treat Discharge provider: Alberto Hawley MD Summary Hospital Course Discharge Diagnosis: Acute kidney injury due to dehydration Hypotension Acute Hyponatremia Acute Hypokalemia Anemia of chronic disease requiring blood transfusion Stage IV metastatic lung cancer Severe protein calorie malnutrition Hypertension Constipation Cancer related pain condition Hospital Course: Patient was admitted to the hospital with hypotension acute kidney injury electrolyte abnormalities and significant weakness. Patient is undergoing chemotherapy for stage IV lung cancer with metastatic disease to the brain. During her hospital stay she received IV fluids electrolyte replacement and a blood transfusion to help with her significant kidney injury electrolyte abnormalities and anemia. During her hospital stay she review wired IV pain management for control of her abdominal pain. Patient had significant signs of mild to nutrition and had a nutritional consultation with patient and family. Provided directions and recommendations for nutrition at home. Patient's chemotherapy which was supposed to be yesterday was placed on hold for few weeks. Goals of care conference was discussed with patient and daughter. Reviewed their current care plans which is palliative chemotherapy. Due to patient's significant weakness recommend holding off on that. We discussed the hospice and home health. Home health will be available at discharge. Hospice will be in the wings and have a family conference does discuss care goals with patient and daughter. At the time of discharge The time of discharge patient was profoundly still weak. Other doing a little bit better. Discharge plan is home with home health. Consideration for hospice. Well a follow-up appointment in 1-2 weeks with the patient. Exam Vital Signs (past 8 hours): - 12/09/21 01:01 12/09/21 04:57 Temperature 97.9 F 97.5 F L Pulse Rate 60 59 L Respiratory Rate 18 18 Blood Pressure 133/79 116/67 Pulse Oximetry 97 95 Oxygen Flow Rate 0 0 Oxygen Delivery Method Room Air Oxygen Flow Rate 0 Narrative Exam Narrative: Gen.: Patient is alert this morning says she has good night sleep HEENT: Pupils have some mattering or mucosa is dry neck is supple Cardio: Regular rate and rhythm Respiratory: Normal respiratory effort Abdomen: Soft nontender Extremities: Full range of motion no appreciable weakness no cyanosis or edema. Neurologic: Grossly intact. Objective Labs Result Diagrams: 12/08/21 06:30 12/08/21 06:30 Labs: Laboratory Results - last 24 hr 12/08/21 12/08/21 06:30 06:30 WBC 9.8 RBC 3.40 L Hgb 11.3 L Hct 32.8 L MCV 96.7 D MCH 33.3 MCHC 34.4 RDW 20.2 H Plt Count 272 Neut % (Auto) Not Reportable Lymph % (Auto) Not Reportable Carroll % (Auto) Not Reportable Eos % (Auto) Not Reportable Baso % (Auto) Not Reportable Lymph # (Auto) Not Reportable Carroll # (Auto) Not Reportable Baso # (Auto) Not Reportable Total Counted 100 Seg Neutrophils % 63.0 D Lymphocytes % (Manual) 21.0 L Atypical Lymphs % 1.0 H Monocytes % (Manual) 14.0 H Myelocytes % 1.0 H Neutrophils # (Manual) 6174 H Nucleated RBCs 1 H RBC Morphology See below Hypochromasia 1+ H Anisocytosis 2+ H Sodium 134 L Potassium 3.3 L Chloride 108 H Carbon Dioxide 20 L BUN 10 Creatinine 0.68 Estimated GFR > 60 BUN/Creatinine Ratio 14.7 Glucose 91 Calcium 7.9 L Total Bilirubin 0.3 AST 23 ALT 17 Alkaline Phosphatase 70 Total Protein 5.2 L Albumin 2.4 L Globulin 2.8 Albumin/Globulin Ratio 0.9 L PFSH Medical History Arthritis of carpometacarpal (CMC) joint of left thumb Cervical stenosis of spinal canal Facet arthropathy, cervical Foraminal stenosis of cervical region Impingement syndrome of left shoulder Myelomalacia of cervical cord Surgical History History of tonsillectomy Status post tubal ligation Social History marital status: household members: family Smoking Status: Former smoker alcohol intake: current substance use type: does not use Discharge Plan Discharge Plan Patient Disposition: Home Provider Discharge Comment: Discharge home with home health. Please have hospice contact the patient for informational discussion. Patient needs follow-up with Dr. Hawley in 10 days. We can do a telehealth appointment Discharge orders & Medications Prescriptions: New dexamethasone 4 mg tablet 4 mg PO DAILY Qty: 30 0RF Continued acetaminophen [Tylenol] 325 mg tablet 650 mg PO Q6H PRN (Reason: Pain (Scale Score 1-3)) cholecalciferol (vitamin D3) 25 mcg (1,000 unit) capsule 25 mcg PO DAILY nicotine 14 mg/24 hr patch 24 hour 1 patch transdermal DAILY ondansetron 4 mg tablet,disintegrating 4 mg PO Q8H polyethylene glycol 3350 [Miralax] 17 gram powder in packet 17 g PO PRN PRN (Reason: Constipation) sennosides [Natural Senna Laxative] 8.6 mg tablet 17.2 mg PO BEDTIME PRN (Reason: constipation) vitamin B complex [B Complex-Vitamin B12] Tablet 1 tab PO DAILY MULTIVITAMIN 1 cap PO Q DAY Qty: 0 triamcinolone acetonide 0.1 % cream 1 applic Topical BID Qty: 15 1RF memantine 10 mg tablet 10 mg PO BID Label Comments: TAKE ONE TABLET BY MOUTH TWICE DAILY. FILL DATE 10/01/2021 folic acid 1 mg tablet 1 mg PO DAILY Label Comments: TAKE ONE TABLET BY MOUTH ONE TIME DAILY. INITIATE ONE WEEK PRIOR TO PEMETREXED CHEMOTHERAPY AND CONTINUE FOR THREE WEEKS AFTER LAST DOSE OF PEMETREXED. potassium chloride 20 mEq tablet extended release 20 meq PO DAILY Label Comments: TAKE ONE TABLET BY MOUTH ONE TIME DAILY FOR 14 DAYS THEN REASSESS hydrocodone-acetaminophen 5-325 mg tablet 1 tab PO Q8H PRN (Reason: pain) Qty: 10 0RF Discontinued lisinopril 20 mg tablet 20 mg PO DAILY Rx Instructions: BP is low - recommended to not take at this time. LD 12/05/21 nitrofurantoin monohyd/m-cryst [Macrobid] 100 mg capsule 100 mg PO Q12H 5 Days Qty: 10 0RF Rx Instructions: must administer with a meal/food simvastatin 20 mg tablet 20 mg PO HS Qty: 90 3RF Follow up/Referrals: Alberto Hawley MD [Primary Care Provider] - Discharge Data Primary Care Provider: Alberto Hawley Quality VTE Deep Vein Thrombosis/Pulmonary Embolism Present on Admission: No
--- NOTE | 2021-12-09 08:12 | CM.DPC ---
DCP Discharge Home with HH Per MD, pt still quite weak but medically stable to d/c home today with Dtr and new HH referral to [facility] and had Goals of Care discussion with family and will pause palliative chemo for now and attempt to strengthen pt and stabilize but family given information on Hospice and interested in Info Visit in case pt does not improve. ESTHELA faxed [facility] pt's F2F, orders, and d/c summary for discharge home with Dtr today. SW made [facility] referral and faxed clinicals requesting info visit with Dtr after discharge home today. Plan; Patient to d/c home via Dtr POV today and new [facility] referral to open pt to services this week and [facility] to follow for Info Visit with Dtr. Susy Vela MSW
[2021-12-09 09:33] VITALS: BP 130/74; PULSE 54; RESP 16; TEMP 36.5; O2SAT 95
[2021-12-09] MEDS: POTASSIUM CHLORIDE 20 MEQ/15 ML UDC PO (10:16)
[2021-12-09] MEDS: ENOXAPARIN 30 MG/0.3 ML SYRINGE SUBCUT (10:16)
[2021-12-09] MEDS: NICOTINE 14 PATCH 14 MG TOP (10:17)
[2021-12-09] MEDS: MEMANTINE HCL 5 MG TABLET 10 MG PO (10:17)
[2021-12-09] MEDS: polyethylene glycoL 3350 17 GM POWD.PACK PO (10:17)
[2021-12-09] MEDS: GABAPENTIN 300 MG CAPSULE PO (10:17)
[2021-12-09] MEDS: OXYCODONE IR 5 MG TABLET PO (10:17)
== END 2021-12-09 13:14 | disposition home health service (06) | DRG 682 ==
LOC: ED 14:33 → AC 15:23
PROVIDERS: Admitting Provider Family Medicine; Emergency Provider Emergency Medicine; Family Provider Family Medicine; PCP Family Medicine; Referring Provider Emergency Medicine; Visit Provider Family Medicine
DX: N17.9 Acute kidney failure, unspecified (principal); E43 Unspecified severe protein-calorie malnutrition; C34.90 Malignant neoplasm of unspecified part of unspecified bronchus or lung; C79.31 Secondary malignant neoplasm of brain; Z68.1 Body mass index [BMI] 19.9 or less, adult; E87.1 Hypo-osmolality and hyponatremia; E86.0 Dehydration; G89.3 Neoplasm related pain (acute) (chronic); D63.0 Anemia in neoplastic disease; E87.6 Hypokalemia; R29.6 Repeated falls; K59.00 Constipation, unspecified; Z87.891 Personal history of nicotine dependence; Z20.822 Contact with and (suspected) exposure to COVID-19
CPT/HCPCS: 36415; 36430; 70470; 71045; 74177; 80053; 83690; 83735; 85007; 85025; 85610; 85730; 86850; 86900; 86901; 87077; 87086; 87186; 87635; 93005; 96361; 96374; 97162; 99223; 99232; 99238; 99284; C9803; P9016; J1650; J1940; J2270; J2405; Q9967

== ENCOUNTER → 2021-12-28 09:38 | Outpatient (CLI) | payer MEDICARE, OTHER, SELFPAY ==
[2021-12-06 15:35] VITALS: BMI 17.2
[2021-12-28 10:05] LABS: Appearance Urine UA CLEAR; Bilirubin Urine UA NEGATIVE (NEGATIVE); Color Urine UA YELLOW; Glucose Urine UA NEGATIVE (Negative); Ketones Urine UA NEGATIVE (NEGATIVE); Leukocyte Esterase Urine UA TRACE (NEGATIVE); Nitrite Urine UA NEGATIVE (Negative); Occult Blood Urine UA NEGATIVE (Negative); Protein Urine UA NEGATIVE (Negative); Specific Gravity Urine UA <=1.005 (1.000-1.035); Urobilinogen Urine UA 0.2 E.U./dL (0.2)
[2021-12-28 10:15] LABS: Bacteria Urine Occasional (0-1); Culture Indicated Urine Specimen Cultured; RBC Urine None Seen (0-5/HPF); Transitional Epi Cells Urine 1-5/HPF (0-5/HPF); WBC Urine 5-10/HPF (0-5/HPF)
== END ==
PROVIDERS: Family Provider Family Medicine; PCP Family Medicine; Referring Provider Family Medicine; Visit Provider Family Medicine
DX: R30.0 Dysuria (principal); R82.90 Unspecified abnormal findings in urine
CPT/HCPCS: 81001; 87086